=== PATIENT | male | born 1975 | race Caucasian/White ===

== ENCOUNTER 2016-11-16 20:25 | Inpatient (IN) | payer OTHER ==
[~2016-11-16] VITALS: Ht 182.9 cm; Wt 59.5 kg
--- NOTE | 2016-11-16 22:35 | DIAGNOSTIC IMAGING REPORT ---
PROCEDURE: XR TIBIA AND FIBULA - LEFT INDICATION: CELLULITIS TECHNIQUE: AP and lateral views. COMPARISON: None. FINDINGS: Osseous structures are normal. IMPRESSION: 1. Normal left tibia and fibula.
--- NOTE | 2016-11-16 22:37 | DIAGNOSTIC IMAGING REPORT ---
PROCEDURE: XR CHEST 1 VIEW INDICATION: They are. Overdose. TECHNIQUE: Portable AP view (2145 hours). COMPARISON: Compared to chest x-ray on 05/17/2015. FINDINGS: Lungs are clear. Heart and mediastinum are normal. Thorax is normal. IMPRESSION: 1. Negative chest.
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
--- NOTE | 2016-11-16 23:16 | ED ORDER SUMMARY ---
..... Patient: JUAN MCRAE OrderSheet [facility] VisitID: [id number] [place] [address] 41y, M Registration Date/Time: 11/16/2016 ORDER SHEET Weight: 68 kg (stated) Allergies: Sulfa Antibiotics GENERAL ORDERS: Blood Culture (No) (N/A) Urgent (21:37 11/16/2016 Marine SAXENA) (Ack 21:43 LTapper) (22:18 AMcQuoid ER Tech1) Chest 1V Urgent (21:38 11/16/2016 Marine SAXENA) (Ack 21:43 LTapper) (21:59 MCampbell) Sushi Chef (Continuous) (:38 11/16/2016 Marine SAXENA) (21:47 Sapphire R.N.) Cardiac Panel Stat (:11/16/2016 Marine SAXENA) (Ack 21:43 LTapper) (21:47 Paigeelli R.N.) Urine Drug Screen Urgent (21:38 11/16/2016 Marine SAXENA) (Ack 21:43 LTapper) (Cancelled: Patient Off Unit, patient unable to provide sample 5:19 HSoule) UA-Culture if indicated Urgent (21:38 11/16/2016 Marine SAXENA) (Ack 21:43 LTapper) (Cancelled: Patient Off Unit, patient unable to provide sample 5:20 HSoule) Acetaminophen Level Urgent (21:38 11/16/2016 Marine SAXENA) (Ack 21:43 LTapper) (21:48 omanelli R.N.) Salicylate Level Urgent (21:38 11/16/2016 Marine SAXENA) (Ack 21:43 LTapper) (21:48 Sapphire R.N.) TSH Urgent (21:11/16/2016 Marine SAXENA) (Ack 21:43 LTapper) (21:48 Paigeelli R.N.) Ethyl Alcohol Urgent (21:11/16/2016 Marine SAXENA) (Ack 21:43 LTapper) (21:48 Paigeelli R.N.) Pulse oximeter (21:38 11/16/2016 Marine SAXENA) (21:47 JRomanelli R.N.) EKG - ER Stat (21:38 11/16/2016 Marine SAXENA) (Ack 21:43 LTapper) (22:18 AMcQuoid ER Tech1) CO2 Monitoring (21:39 11/16/2016 Marine SAXENA) (23:11 HSoule) - (Neuro checks q 30 minutes.) (21:39 11/16/2016 Marine SAXENA) (0:43 HSoule) Tibia/Fibula Left Urgent (21:40 11/16/2016 Marine SAXENA) (Ack 21:43 LTapper) (21:59 MCampbell) MEDICATION ORDERS: IV FLUIDS: IV NS : initial bolus none -, then 250 mL/hr for 4h (NOW); Routine (21:38 11/16/2016 Marine SAXENA) (22:01 JRomanelli R.N.) Vancomycin IV 25 mg/kg (NOW) (21:40 11/16/2016 Marine SAXENA) (Ack 23:11 HSoule) (23:21 JRomanelli R.N.) IV#2 NS : initial bolus none -, then 250 mL/hr (NOW) (23:55 11/16/2016 JRomanelli R.N. verbal order read back to Marine SAXENA) (23:57 JRomanelli R.N.) ORDER SHEET NOTES: [Electronically signed by Florencia Briones (05:20 11/17/2016)] [Electronically signed by Florencia Briones (05:21 11/17/2016)] [Electronically signed by Clive Head MD (08:07 11/17/2016)] [Electronically locked/signed by Florencia Briones (05:20 11/17/2016)]
--- NOTE | 2016-11-16 23:16 | ED ORDER SUMMARY ---
..... Patient: JUAN MCRAE OrderSheet [facility] VisitID: [id number] [address] [place] [address] 41y, M Registration Date/Time: 11/16/2016 ORDER SHEET Weight: 68 kg (stated) Allergies: Sulfa Antibiotics GENERAL ORDERS: Blood Culture (No) (N/A) Urgent (21:37 11/16/2016 Marine SAXENA) (Ack 21:43 LTapper) (22:18 AMcQuoid ER Tech1) Chest 1V Urgent (21:38 11/16/2016 Marine SAXENA) (Ack 21:43 LTapper) (21:59 MCampbell) Stained Glass Window Designer (Continuous) (:38 11/16/2016 Marine SAXENA) (21:47 Sapphire R.N.) Cardiac Panel Stat (:11/16/2016 Marine SAXENA) (Ack 21:43 LTapper) (21:47 Paigeelli R.N.) Urine Drug Screen Urgent (21:38 11/16/2016 Marine SAXENA) (Ack 21:43 LTapper) (Cancelled: Patient Off Unit, patient unable to provide sample 5:19 HSoule) UA-Culture if indicated Urgent (21:38 11/16/2016 Marine SAXENA) (Ack 21:43 LTapper) (Cancelled: Patient Off Unit, patient unable to provide sample 5:20 HSoule) Acetaminophen Level Urgent (21:38 11/16/2016 Marine SAXENA) (Ack 21:43 LTapper) (21:48 omanelli R.N.) Salicylate Level Urgent (21:38 11/16/2016 Marine SAXENA) (Ack 21:43 LTapper) (21:48 Sapphire R.N.) TSH Urgent (21:11/16/2016 Marine SAXENA) (Ack 21:43 LTapper) (21:48 Paigeelli R.N.) Ethyl Alcohol Urgent (21:11/16/2016 Marine SAXENA) (Ack 21:43 LTapper) (21:48 Paigeelli R.N.) Pulse oximeter (21:38 11/16/2016 Marine SAXENA) (21:47 JRomanelli R.N.) EKG - ER Stat (21:38 11/16/2016 Marine SAXENA) (Ack 21:43 LTapper) (22:18 AMcQuoid ER Tech1) CO2 Monitoring (21:39 11/16/2016 Marine SAXENA) (23:11 HSoule) - (Neuro checks q 30 minutes.) (21:39 11/16/2016 Marine SAXENA) (0:43 HSoule) Tibia/Fibula Left Urgent (21:40 11/16/2016 Marine SAXENA) (Ack 21:43 LTapper) (21:59 MCampbell) MEDICATION ORDERS: IV FLUIDS: IV NS : initial bolus none -, then 250 mL/hr for 4h (NOW); Routine (21:38 11/16/2016 Marine SAXENA) (22:01 JRomanelli R.N.) Vancomycin IV 25 mg/kg (NOW) (21:40 11/16/2016 Marine SAXENA) (Ack 23:11 HSoule) (23:21 JRomanelli R.N.) IV#2 NS : initial bolus none -, then 250 mL/hr (NOW) (23:55 11/16/2016 JRomanelli R.N. verbal order read back to Marine SAXENA) (23:57 JRomanelli R.N.) ORDER SHEET NOTES: [Electronically signed by Florencia Briones (05:20 11/17/2016)] [Electronically signed by Florencia Briones (05:21 11/17/2016)] [Electronically signed by Clive Head MD (08:07 11/17/2016)] [Electronically locked/signed by Florencia Briones (05:20 11/17/2016)]
--- NOTE | 2016-11-17 00:25 | Progress Note ---
Subjective General 41 y.o male admitted for fevers, OD from heroin, cough, and r/o SBE. Patient sedated in ER from prior OD. Will watch labs, blood cultures, and treat with vanco.
--- NOTE | 2016-11-17 01:06 | HISTORY AND PHYSICAL ---
ADMITTED: 11/16/2016 CHIEF COMPLAINT: 1. Overdose, heroin use and fever HISTORY OF PRESENT ILLNESS: The patient is a 41-year-old male who presented to the emergency department today by ambulance crew and after having been found down. He was given some doses of Narcan in the field. He was brought to the emergency department where he continued to have issues of sedation. In the workup in the emergency department, he was found to have a fever with his history of heroin use and fever of unknown origin. A decision was made for admission at that time and we will admit him for fever in a heroin user and rule out heart valve infection. MEDICAL/SURGICAL HISTORY: Past medical history: The patient states he has generally been healthy. MEDICATIONS: 1. He denies. ALLERGIES: 1. HE SAYS HE HAS ALLERGIES TO SULFA, WHICH HAS CAUSED HIS EYE TO SWELL IN THE PAST. SOCIAL HISTORY: He is a known drug user. Heavy smoker, about a pack per day. He does both heroin and marijuana, uncertain of alcohol, but not an issue on today's use. FAMILY HISTORY: It is unable to obtain due to the fact that patient is very sleepy and minimally cooperative with his history. CODE STATUS: PRESUMED FULL. He is sleepy. He seems to nod when I asked him about code status. He would be unable to say if he is anything but FULL CODE. REVIEW OF SYSTEMS: He has also been noted to have history of MRSA infection in the past, as well as some abscesses. PHYSICAL EXAMINATION: GENERAL: He is a sleepy male who is responsive, wakes up some. Pulls his nasal cannula up onto the front of his nose and then answers a few questions before falling back to sleep again. VITAL SIGNS: His blood pressure is 108/71, heart rate of 109, respirations 16, temperature 102.3 and saturating 95% room air. HEENT: Extraocular movements intact. Pupils equal, round, reactive to light. Oropharynx is with poor dentition and broken teeth, as well as moist mucous membranes. NECK: Supple without lymphadenopathy. LUNGS: With coarse breath sounds bilaterally. He does state he has been coughing for the last week or 2. HEART: Regular rate and rhythm. No murmur. ABDOMEN: Soft, it is nontender, nondistended. EXTREMITIES: There is a fairly large ulceration on his left calf that is around 3 cm x 2 cm with a little bit of erythema. No other active sores seen on initial evaluation, other than superficial sores. NEUROLOGIC: He is sleepy male, who seems to be oriented to self and location while here, though hard to get him to track well. LAB/IMAGING: Laboratories: CBC: White count of 14.1, hematocrit of 33.4, platelets of 316, 000. Comprehensive metabolic panel: Glucose 95, BUN of 11, creatinine 0.9, sodium 135 , potassium 3.7, chloride 99, carbon dioxide 28, magnesium 1.8, calcium 7.3, total protein 7.5. Albumin 2.4, bili 0.2, alk phos 58, AST of 70, ALT of 83. CPK 137, troponin I less than 0.05. Acetaminophen less than 2. Alcohol less than 3. TSH of 1.263. Salsalate less than 2.8. EKG is within normal limits. Left tibia, fibula is normal. Chest x-ray is negative. IMPRESSION: 1. This is a 41-year-old male with heroin use and addiction, who presented to the emergency department after overdosing. He has a history of cough for about a week with possible source of fever of 102 that had in emergency room. Also an abscess on his thigh, as well as rule out any bacterial endocarditis. He has got blood cultures x3 drawn in the emergency department. His white count is elevated and no other known source of fever. Currently does not have a murmur heard on evaluation. PLAN: To admit him. We will hold on treatment of his heroin other than monitoring EKG and oxygen saturation at this point and when he wakes up and is alert and clear, may consider a low-dose of methadone for withdrawal symptoms. Anticipate that the patient will be watched for 48 hours on blood cultures, if negative, may consider discharge at that time. In the meantime, we will treat with vancomycin. He is ALLERGIC TO SULFA and so further treatment of possible methicillin-resistant Staphylococcus aureus will have to be considered at a later date as indicated.
[2016-11-17 01:37] VITALS: BP 102/65
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
[2016-11-17 06:29] VITALS: BP 104/67
--- NOTE | 2016-11-17 08:07 | ED MAR SUMMARY ---
..... Medication Administration Record [facility] [address] [place] [address] Patient: JUAN MCRAE Visit ID: [id number] 41y, M Weight: 68.0 kg Height/Length: 72 in BMI: 20.3 ALLERGIES: Sulfa Antibiotics Start 21:56 11/16/2016 Bill Crowder R.N., Stop 23:51 11/16/2016 Bill Crowder R.N. Medication Administered: IV NS (SALINE), Dose: IV Fluids over 4 hour(s), Rate: 250 mL/hr, Dispensed: 1000 mL bag, Site: #1 right foot. Medication Ordered: IV NS : initial bolus none -, then 250 mL/hr for 4h (NOW); Routine. Start 23:11 11/16/2016 Bill Crowder R.N., Stop 00:50 11/17/2016 Florencia Briones, Medication Administered: VANCOMYCIN [IVPB], Dose: 1 gm IVPB over 60 minute(s), Rate: 200 mL/hr, Dispensed: 200 mL bag, Site: #1 right foot. Medication Ordered: Vancomycin IV 25 mg/kg (NOW). Start 23:52 11/16/2016 Bill Crowder RPatel, Continued Upon Disposition 00:51 11/17/2016 Florencia Briones, Medication Administered: IV#2 NS (SALINE), Dose: IV Fluids over 4 hour(s), Rate: 250 mL/hr, Dispensed: 1000 mL bag, Site: #1 right foot. Medication Ordered: IV#2 NS : initial bolus none -, then 250 mL/hr (NOW).
--- NOTE | 2016-11-17 08:07 | ED DISCHARGE INSTRUCTIONS ---
Patient: JUAN MCRAE General Instructions [facility] VisitID: [id number] [address] [place] [address] 41y, M Registration Date/Time: 11/16/2016 Accidental multi-drug overdose with methamphetamine and heroin. Fever with concern for SBE IVDA heroin and meth. ADDITIONAL INFORMATION Accidental Ingestion:Non-Toxic [Adult] You have been evaluated and treated for taking too much of a medicine or swallowing a chemical product. There is no sign of toxic effect at this time. It is very unlikely that any new symptoms will appear. As a safeguard, you must be alert for symptoms during the next 24 hours (see below). The exact symptom will depend on what was swallowed. Home Care: If LIQUID CHARCOAL was given to neutralize what was swallowed, it will cause a black color to the stools for 1-2 days. Usually, a laxative (sorbitol) is given with charcoal to speed the removal of any toxins from the intestinal tract. This may cause diarrhea for up to 24 hours. If no laxative was given with charcoal, you may get constipated. If this occurs, you may take an pyks-ujn-hibnksh laxative such as Dulcolax pills or suppository. Prevention: Keep medicines, pesticides, and other household chemicals in their original containers. Clearly marta all harmful products if a different bottle is used. Follow Up with your doctor if all symptoms do not resolve within 24 hours or if constipation is not relieved by one or two doses of laxatives. Get Prompt Medical Attention if any of the following occur: Excess drowsiness or inability to be awakened Rapid heart beat, shakiness or seizure Fast breathing (over 25 breaths/minute) or slow breathing (less than 8 breaths/minute) Feeling shortness of breath Fever of 100.4F (38C) or higher, or as directed by your healthcare provider Vomiting or diarrhea for more than 24 hours Blood in stools or vomit (black or red color) Chest or abdominal pain Dizziness, weakness or fainting You have been given the following additional information: Overdose, Accidental (Adult) (Electronically signed by Marta Head MD 11/17/2016 8:07)
--- NOTE | 2016-11-17 08:07 | ED MAR SUMMARY ---
..... Medication Administration Record [facility] [address] [place] [address] Patient: JUAN MCRAE Visit ID: [id number] 41y, M Weight: 68.0 kg Height/Length: 72 in BMI: 20.3 ALLERGIES: Sulfa Antibiotics Start 21:56 11/16/2016 Bill Crowder R.N., Stop 23:51 11/16/2016 Bill Crowder R.N. Medication Administered: IV NS (SALINE), Dose: IV Fluids over 4 hour(s), Rate: 250 mL/hr, Dispensed: 1000 mL bag, Site: #1 right foot. Medication Ordered: IV NS : initial bolus none -, then 250 mL/hr for 4h (NOW); Routine. Start 23:11 11/16/2016 Bill Crowder R.N., Stop 00:50 11/17/2016 Florencia Briones, Medication Administered: VANCOMYCIN [IVPB], Dose: 1 gm IVPB over 60 minute(s), Rate: 200 mL/hr, Dispensed: 200 mL bag, Site: #1 right foot. Medication Ordered: Vancomycin IV 25 mg/kg (NOW). Start 23:52 11/16/2016 Bill Crowder RPatel, Continued Upon Disposition 00:51 11/17/2016 Florencia Briones, Medication Administered: IV#2 NS (SALINE), Dose: IV Fluids over 4 hour(s), Rate: 250 mL/hr, Dispensed: 1000 mL bag, Site: #1 right foot. Medication Ordered: IV#2 NS : initial bolus none -, then 250 mL/hr (NOW).
--- NOTE | 2016-11-17 08:07 | ED DISCHARGE INSTRUCTIONS ---
Patient: JUAN MCRAE General Instructions [facility] VisitID: [id number] [address] [place] [address] 41y, M Registration Date/Time: 11/16/2016 Accidental multi-drug overdose with methamphetamine and heroin. Fever with concern for SBE IVDA heroin and meth. ADDITIONAL INFORMATION Accidental Ingestion:Non-Toxic [Adult] You have been evaluated and treated for taking too much of a medicine or swallowing a chemical product. There is no sign of toxic effect at this time. It is very unlikely that any new symptoms will appear. As a safeguard, you must be alert for symptoms during the next 24 hours (see below). The exact symptom will depend on what was swallowed. Home Care: If LIQUID CHARCOAL was given to neutralize what was swallowed, it will cause a black color to the stools for 1-2 days. Usually, a laxative (sorbitol) is given with charcoal to speed the removal of any toxins from the intestinal tract. This may cause diarrhea for up to 24 hours. If no laxative was given with charcoal, you may get constipated. If this occurs, you may take an uvxy-lth-plvuruo laxative such as Dulcolax pills or suppository. Prevention: Keep medicines, pesticides, and other household chemicals in their original containers. Clearly marta all harmful products if a different bottle is used. Follow Up with your doctor if all symptoms do not resolve within 24 hours or if constipation is not relieved by one or two doses of laxatives. Get Prompt Medical Attention if any of the following occur: Excess drowsiness or inability to be awakened Rapid heart beat, shakiness or seizure Fast breathing (over 25 breaths/minute) or slow breathing (less than 8 breaths/minute) Feeling shortness of breath Fever of 100.4F (38C) or higher, or as directed by your healthcare provider Vomiting or diarrhea for more than 24 hours Blood in stools or vomit (black or red color) Chest or abdominal pain Dizziness, weakness or fainting You have been given the following additional information: Overdose, Accidental (Adult) (Electronically signed by Marta Head MD 11/17/2016 8:07)
--- NOTE | 2016-11-17 08:07 | ED MED RECONCILIATION SUMMARY ---
Patient: NATACHA MCRAEOPHER Bernie Medication Reconciliation Report [facility] VisitID: [id number] [address] [place] [address] 41y, M Registration Date/Time: 11/16/2016 Weight: 68 kg Height/Length: 72 in. BMI: 20.3 ALLERGIES: Sulfa Antibiotics The patient's Home Medications are listed below: NONE. The source(s) of the original Home Medication information: patient The following Medications were given to the patient in the Emergency Department: IV NS IV Fluids bolus 0, then 250 mL/hr, administered: 11/16/2016 9:56:00 PM Vancomycin [IVPB] IVPB bolus 0, then 1 gm 200 mL/hr, administered: 11/16/2016 11:11:00 PM IV#2 NS IV Fluids bolus 0, then 250 mL/hr, administered: 11/16/2016 11:52:00 PM The following Medications were prescribed to the patient: None.
--- NOTE | 2016-11-17 08:07 | ED MED RECONCILIATION SUMMARY ---
Patient: NATACHA MCRAEOPHER Bernie Medication Reconciliation Report [facility] VisitID: [id number] [address] [place] [address] 41y, M Registration Date/Time: 11/16/2016 Weight: 68 kg Height/Length: 72 in. BMI: 20.3 ALLERGIES: Sulfa Antibiotics The patient's Home Medications are listed below: NONE. The source(s) of the original Home Medication information: patient The following Medications were given to the patient in the Emergency Department: IV NS IV Fluids bolus 0, then 250 mL/hr, administered: 11/16/2016 9:56:00 PM Vancomycin [IVPB] IVPB bolus 0, then 1 gm 200 mL/hr, administered: 11/16/2016 11:11:00 PM IV#2 NS IV Fluids bolus 0, then 250 mL/hr, administered: 11/16/2016 11:52:00 PM The following Medications were prescribed to the patient: None.
--- NOTE | 2016-11-17 08:49 | NUR ---
Vancomycin dosing per pharmacy Treating to r/o bacterial endocarditis fever in heroin addict; pt found down in field; wbc 12.1, neutorphils 85.9%, temp on admit in ED 101 Hx MRSA infections and has abscess on thigh, also smoker. target trough 15-20 mcg/ml Initial dose Vancomycin total given 1500 mg (500 mg ~ 0300) to be followed with 1000 mg IV q8h. Measuring trough level 11/18 0930 - prior to 1000 dose (5th dose). Pharmacist will follow
[2016-11-17 10:58] VITALS: BP 95/44
--- NOTE | 2016-11-17 13:09 | NUR ---
UP TO SHOWER. TOLERATED WELL. UP IN CHAIR FOR LUNCH. SLEEPING WHEN IN BED. AWAKENS EASILY.
--- NOTE | 2016-11-17 13:39 | Progress Note ---
Subjective General Patient more awake now. Feeling well. Pain controlled. No nausea, vomitting, diarrhea, constipation. Shower this am and now wound is draining. Physical Exam Vital Signs / I&Os Vital Signs Date Time Temp Pulse Resp B/P Pulse O2 O2 Flow FiO2 Ox Delivery Rate 11/17 1058 36.9 75 18 95/44 96 Room Air 0.0 11/17 0800 Nasal 2.0 Cannula 11/17 0629 36.8 80 18 104/67 99 Nasal 2.0 Cannula 11/17 0259 76 12 97 2.0 11/17 0137 37.2 66 13 102/65 99 Nasal 2.0 Cannula 11/17 0130 Nasal 2.0 Cannula General Appearance Alert, Oriented X3, No acute distress Lungs Clear to auscultation, Normal air movement Cardiovascular Regular rate and rhythm, Normal S1 and S2, No murmurs, gallops, rubs Abdomen Normal bowel sounds, Soft, No tenderness Extremities No edema, 2 cm x 1 cm and 1 cm x 1 cm lesions on L cueva with erythema and pus discharge Assessment and Plan Problem List 1. Abscess Plan Culture sent. On vanco. 2. HEROIN OD Plan Resolved. 3. Heroin abuse Plan will start methadone
[2016-11-17 14:27] VITALS: BP 104/54
--- NOTE | 2016-11-17 18:44 | NUR ---
UP IN CHAIR FOR DINNER. NOW IN BED WITH JIA RUNNING, WATCHING TV.
[2016-11-17 18:47] VITALS: BP 113/57
[2016-11-17 22:24] VITALS: BP 108/65
[2016-11-18 01:55] VITALS: BP 110/69
--- NOTE | 2016-11-18 06:12 | NUR ---
vss. Calm and cooperative with care this shift. Pt belongings under nurses station due to closet door in room not having a lock. Pt sleeping between care. IV vanco. C/O withdrawl symptoms. Dr. Angel notified and methadone dose increased. WCTM.
[2016-11-18 06:40] VITALS: BP 110/74
--- NOTE | 2016-11-18 10:04 | NUR ---
Vancomycin dosing per pharmacy trough 16.1 in therapeutic range Continue with current dosing - 1 gm IV q8h Will recheck trough on 11/19 to confirm steady state Pharmacist will follow
[2016-11-18 10:38] VITALS: BP 108/61
--- NOTE | 2016-11-18 10:43 | Progress Note ---
Subjective General Feeling improved today. No nausea, vomitting, diarrhea, or constipation, but hasn't had a BM since admit. Eating well. NO cough or SOB. No chest pain. Physical Exam Vital Signs / I&Os Vital Signs Date Time Temp Pulse Resp B/P Pulse O2 O2 Flow FiO2 Ox Delivery Rate 11/18 1038 36.7 71 20 108/61 98 Room Air 11/18 0640 36.7 71 20 110/74 96 Room Air 0.0 11/18 0155 37.0 80 24 110/69 96 Room Air 11/17 2224 36.8 70 24 108/65 98 Room Air 11/17 1847 37.1 82 24 113/57 96 Room Air 11/17 1427 36.2 79 18 104/54 98 Room Air 11/17 1058 36.9 75 18 95/44 96 Room Air 0.0 I&O 11/18 0000 11/17 1600 11/17 0800 Intake Total 740 1380 936 Output Total 1575 1600 600 Balance -835 -220 336 General Appearance Alert, Cooperative, No acute distress Lungs End-expiratory wheezing. Cardiovascular Regular rate and rhythm, Normal S1 and S2, No murmurs, gallops, rubs Abdomen Normal bowel sounds, Soft, No tenderness Extremities No edema, 2cm x 1 cm lesion on L cueva with pus discharge that is decreasing. Erythema has improved. Assessment and Plan Problem List 1. Abscess Plan Improving on abx. Likely discharge tomorrow. 2. Heroin abuse Plan Started on methadone. 3. HEROIN OD Plan Resolved.
[2016-11-18 14:20] VITALS: BP 111/66
--- NOTE | 2016-11-18 15:07 | NUR ---
PT AWAKE, COOPERATIVE. DENIED ANY PAIN. APPETITE GOOD AND EATING SNACKS. WOUND ON LLE, SMALL AMOUNT OF OLD DRAINAGE ON DRESSING, LESS RED, CALF AREA VERY FIRM POSTERIOR TO WOUND. REDRESSED WOUND WITH 4X4'S AND GAUZE WRAP.
--- NOTE | 2016-11-18 17:41 | NUR ---
STARTED ON IS. ABLE TO GET TO 4000 WITH GOOD TECHNIQUE. PRODUCED COUGHING.
[2016-11-18 19:00] VITALS: BP 109/64
[2016-11-18 22:13] VITALS: BP 111/69
[2016-11-19 01:46] VITALS: BP 108/67
[2016-11-19 06:17] VITALS: BP 108/65
--- NOTE | 2016-11-19 07:49 | Progress Note ---
Subjective General Note Date: November 19, 2016 Admission Date: November 16, 2016 Hospital Day: 4 PCP: None Status: Inpatient Advanced Directive: FULL CODE Room: 301 Brief History: The patient is a 41-year-old white male with a significant past medical history of illicit drug use-heroin/methamphetamine. He presented with findings of opiate overdose. Secondary to the above the patient was admitted by Yaron Fournier M.D., for further evaluation and treatment. For other history of present illness, past medical history, family history, social history, review systems, and admission physical examination please see the admission history and physical exam and ER visit note in the patient's medical record. Subjective: The patient states he is doing well. Ready for discharge Patient requests: None Medications and Allergies Medications Current Medications Sig/Darling Start time Last Medication Dose Route Stop Time Status Admin Clarify Med Order See Dose 0930 11/19 0930 AC Insts (1) IV 11/19 1030 Albuterol Sulfate 2.5 MG RTQ4H PRN 11/18 1200 AC 11/18 IN 1423 Methadone HCl 10 MG BID 11/18 0900 AC 11/18 PO 2224 Clotrimazole See Dose BID 11/17 1200 AC 11/18 Insts (2) TOP 2200 Vancomycin HCl/ 200 ML 1000,1800,0200 11/17 1000 AC 11/19 Dextrose IV 0150 Acetaminophen 650 MG Q6H PRN 11/17 0015 AC PO Al Hydrox/Mg Hydrox/ 15 ML Q1H PRN 11/17 0015 AC Simethicone PO Atropine Sulfate 0.5 MG Q3MIN PRN 11/17 0015 AC IV Lidocaine HCl See Dose ONCE PRN 11/17 0015 AC Insts (3) IV Magnesium Hydroxide 10 ML DAILY PRN 11/17 0015 AC PO Morphine Sulfate 2 MG Q3M PRN 11/17 0015 AC IV Naloxone HCl 0.4 MG ASDIRECTED PRN 11/17 0015 AC IV Nitroglycerin 0.4 MG Q5M PRN 11/17 0015 AC SL Dose Instructions: (1)Clarify Med Order: VANCOMYCIN TROUGH (2)Clotrimazole: APPLY TO AFFECTED AREA (3)Lidocaine HCl: 1.5 MG/KG Allergies Coded Allergies: Sulfa Antibiotics (Severe, 11/17/16) Physical Exam Vital Signs / I&Os Vital Signs Date Time Temp Pulse Resp B/P Pulse O2 O2 Flow FiO2 Ox Delivery Rate 11/19 0617 98.1 75 16 108/65 100 Room Air 0.0 11/19 0146 98.1 62 16 108/67 97 Room Air 0.0 11/18 2213 98.2 67 16 111/69 96 Room Air 0.0 11/18 1900 98.4 66 16 109/64 97 Room Air 11/18 1458 Room Air 11/18 1420 97.7 78 20 111/66 98 Room Air 11/18 1038 98.1 71 20 108/61 98 Room Air I&O 11/19 0000 11/18 1600 11/18 0800 Intake Total 820 120 620 Output Total 375 375 450 Balance 445 -255 170 General Appearance Alert, Oriented X3, Cooperative, No acute distress Lungs Clear to auscultation Cardiovascular Regular rate and rhythm, Normal S1 and S2 Abdomen Normal bowel sounds, Soft Skin Abscess site left leg without significant surrounding erythema or discharge Neurological Grossly normal. Psych/Mental Status Mental status normal LAB Results Laboratory Tests 11/18 0930 Toxicology Vancomycin Trough (10.0 - 20.0 ug/mL) 16.1 Assessment and Plan Problem List 1. Illicit drug use Status Chronic Onset Date Unknown Plan -discharge today -Outpatient follow-up [facility] methadone program 2. Opiate dependence Status Chronic Onset Date Unknown Plan -see above -Discharged today Current Status: Fair, improved Anticipated Discharge: Today E&M Codes Discharge: Inpt >30 min spent/[id number]
[2016-11-19] MEDS ORDERED: KEFLEX500 M1 PO (10:42)
[2016-11-19] MEDS ORDERED: METHADONE HCL10 MG PO (10:42)
--- NOTE | 2016-11-19 10:47 | Provider's Discharge Care Plan ---
Problem, Goal, Plan Problem List 1. Opiate dependence Goals: Improve disease control, Improve function, Improved health/wellness, Increase independence, Prevent disease progress Instructions: Follow up as directed, Take meds as directed, Enroll in [facility] methadone treatment program. 2. Abscess Goals: Improve disease control, Prevent disease progress Instructions: Follow up as directed, Take meds as directed 3. Nicotine dependence Goals: Improve disease control, Prevent disease progress Instructions: Follow up as directed, Take meds as directed, Stop smoking 4. Elevated LFTs Goals: Improve disease control, Prevent disease progress Instructions: Follow up as directed, follow-up for results of liver function testing performed in the hospital with your PCP this week
--- NOTE | 2016-11-19 10:50 | Discharge Summary ---
Discharge Summary Report Admit Date 11/17/16 Discharge Date 11/19/16 Admission Diagnosis 1. Opiate overdose 2. Illicit drug use-heroin, methamphetamine 3. Abscess left lower leg 4. Nicotine dependence-smoking Discharge Diagnosis 1. Opiate overdose 2. Illicit drug use-heroin, methamphetamine 3. Abscess left lower leg 4. Nicotine dependence-smoking Hospital Course The following problems and their management were noted during the patient's hospitalization: 1. Opiate overdose The patient presented with findings of opiate overdose. This resolved with conservative care. The patient had no findings of opiate toxicity on discharge. He was discharged to follow-up in methadone treatment program. 2. Illicit drug use-heroin, methamphetamine The patient has a history of illicit drug use-heroin/methamphetamine. He underwent treatment with opiate replacement therapy during his hospitalization. No signs of opiate withdrawal on discharge. He was referred to [facility] methadone treatment program on discharge. He was discharged on methadone 10 mg by mouth 4 times a day. 3. Abscess left lower leg The patient had findings of abscess present left lower leg. At the time of discharge there were no findings of surrounding cellulitis or discharge from abscess. He was discharged on Keflex 500 mg by mouth 4 times a day. Outpatient follow-up with his PCP. 4. Nicotine dependence-smoking The patient has a history of nicotine dependence-smoking. He underwent smoking cessation education. He wished to not use a NicoDerm patch on discharge. He was encouraged to follow a smoking abstinence program post discharge. He is aware of the health risks of ongoing use of cigarettes/tobacco. Lab/Imaging Laboratory Tests 11/19 0930 Toxicology Vancomycin Trough (10.0 - 20.0 ug/mL) 14.5 Discharge Instructions/Meds For other recommendations regarding discharge diet, activity, followup, and discharge medications please see the patient's discharge instructions. Discharge condition: Fair, improved Greater than 30 min. was spent in the patient's discharge preparation including discharge interview and physical examination, progress note, discharge instructions, and discharge summary The patient was interviewed and examined on the day of discharge. E&M Codes Discharge: Inpt >30 min spent/[id number]
[2016-11-19 11:19] VITALS: BP 98/57
--- NOTE | 2016-11-19 11:27 | NUR ---
PT HAS BEEN OOB TO CHAIR FOR BREAKFAST. HE APPEARS INDEPENDENT IN MOVING. DRESSING ON LLE WAS CHANGED AND DR ALMODOVAR OBSERVED SITE. IL IN R FOOT IS INTACT. WOUND CARE NURSE HERE.
--- NOTE | 2016-11-19 13:52 | NUR ---
In to see patient, being discharged, pt with wound to Left LE, pt not sure of etiology. Please see Photographic wound assessment sheet for wound characteristics and photo. Wound cleansed with NS, Mepliex AG applied to wound base, and secured with Kerlix. Pt understands instructions, and to change in 7 days, except if drainage is out to the borders, will change sooner. Pt given a Regular Mepilex for dressing change in 7 days. Pt has orders to follow up at [facility]. Pt expresses understanding and all questions answered, will continue to monitor.
--- NOTE | 2016-11-19 14:22 | NUR ---
R foot IL discontinued without difficultly and pressure dressing applied. L calf dressing is dry and intact. Pt oob and dressed self. Discharge instructions and 2 new Rx reviewed with pt and copy to chart. Follow up visit, and Methadone rehab clinic info also reviewed with pt. Pt escorted downstairs to obtain bus pass. All questions were answered.
== END 2016-11-19 14:30 | disposition home or self-care (01) | DRG 816 ==
LOC: ED SRH 20:25 → TRANS SRH 23:51 → CC SRH 11-17 00:30
PROVIDERS: ADMIT Family Medicine
DX: T40.1X1A Poisoning by heroin, accidental (unintentional), initial encounter (principal); L02.416 Cutaneous abscess of left lower limb; R50.81 Fever presenting with conditions classified elsewhere; F15.10 Other stimulant abuse, uncomplicated; F17.210 Nicotine dependence, cigarettes, uncomplicated; R40.2412 Glasgow coma scale score 13-15, at arrival to emergency department

== ENCOUNTER 2016-12-18 19:05 | Inpatient (IN) | payer OTHER ==
[~2016-12-18] VITALS: Ht 182.9 cm; Wt 65.0 kg
[~2016-12-18 19:05] MED LIST: KEFLEX500 M1 PO; METHADONE HCL10 MG PO
--- NOTE | 2016-12-18 22:35 | ED CLINICAL REPORT ---
Clinical Report - Physicians/Mid Levels [facility] [address] [place] [address] 12/18/2016 19:05 Patient: JUAN MCRAE Time Seen: 19:15; initial patient contact. Arrived- By ambulance. Historian- patient. History limited by vague historian and intoxication. Physical Exam limited by poor cooperation and intoxication. HISTORY OF PRESENT ILLNESS Chief Complaint: VOMITING. This started just prior to arrival and is still present. The patient has had nausea and vomiting. No diarrhea. The illness is described as moderate. Recent medical care: Not recently seen/assessed. REVIEW OF SYSTEMS The patient has had fever, chills, nausea, vomiting and skin lesion. He has experienced sweats. He has had a moderate cough productive of yellow, green sputum. All systems otherwise negative, except as recorded above. PAST HISTORY Substance Abuse. SURGERIES: Tonsillectomy. Problems: Substance Abuse. Additional Surgeries: Tonsillectomy. Medications: None. Allergies: Sulfa Antibiotics. SOCIAL HISTORY Current every day smoker. History of heavy IV drug use: heroin. He is homeless. FAMILY HISTORY Unable to obtain family medical history due to patient's unresponsiveness. ADDITIONAL NOTES The nursing notes have been reviewed with agreement regarding the chief complaint, PMH and patient medications and allergies. PHYSICAL EXAM Vital Signs: 12/18/2016 19:13 BP: 117/47. HR: 120. RR: 20. O2 saturation: 95%. Temp: 99.2 F. Pain level now: 10/10. Have been reviewed. Hypotensive. Tachycardic. Respiratory rate normal. Temperature normal. Oxygen saturation normal. Appearance: Anxious. Patient in mild distress. Eyes: Eyes normal inspection. ENT: Dry mucous membranes present. CVS: Tachycardia. 1/6 brief systolic murmur. Rhythm normal. Respiratory: No respiratory distress. Abdomen: Soft and nontender. Bowel sounds normal. No organomegaly. No mass. Skin: No rash. Extremities: No lower extremity edema. Neuro: Moderately altered mental status: labile. LABS, X-RAYS, AND EKG EKG: Rate: 117. Tachycardia. The study has been independently viewed by me. Chest X-ray: (IMPRESSION: 1. Findings suggest parenchymal changes at the lung bases. Consider underlying pneumonia (e.g., aspiration, bacterial). 2. Otherwise negative chest.). The X-rays were interpreted by the radiologist and contemporaneously by me. Abdominal Sonogram: Gallbladder wall thickening is present (hyperemic, 3.6 - 5.8 mm). Pericholecystic fluid is present. The common duct is dilated (1.8 mm). Mild fatty liver is present. No gallstones, common duct stones or dilated intrahepatic ducts. The study was independently viewed by me. Laboratory Tests: UA-Culture if indicated: (CHARLES: 12/18/2016 22:52) ( [facility]11[facility] Final results Test Result Flag Units (Reference) URINE COLOR YELLOW URINE APPEARANCE CLEAR URINE GLUCOSE NEGATIVE (NEGATIVE) URINE BILIRUBIN NEGATIVE (NEGATIVE) URINE KETONE NEGATIVE (NEGATIVE) URINE SPECIFIC GRAVITY <= 1.005 L (1.010-1.030) URINE PH 5.5 (5.0-8.0) URINE PROTEIN NEGATIVE (NEGATIVE) URINE UROBILINOGEN 0.2 EU/dL (0.2-1.0) URINE NITRITE NEGATIVE (NEGATIVE) URINE BLOOD 2+ (NEGATIVE) URINE LEUK ESTERASE NEGATIVE (NEGATIVE) URINE RBC 1-3 rbc/hpf (0-1) URINE WBC RARE wbc/hpf (0-1) URINE EPITHELIAL CELLS NONE SEEN EPI/hpf (0-5) URINE BACTERIA NONE SEEN (NONE SEEN) URINE COMMENT CULT NOT INDICATED URINE CULTURES ARE SET-UP BASED ON THE FOLLOWING CRITERIA:POSITIVE NITRITEPOSITIVE LEUKOCYTE ESTERASEGREATER THAN 10 WHITE BLOOD CELLSMODERATE (2+) OR GREATER BACTERIA CBC w Diff: (CHARLES: 12/18/2016 20:10) ( [facility] 12/18/2016 20:30) Final results Test Result Flag Units (Reference) WHITE BLOOD COUNT 8.4 K/uL (4.5-11.5) RED BLOOD COUNT 4.28 L M/uL (4.50-5.90) HEMOGLOBIN 12.5 L gm/dL (13.5-17.5) HEMATOCRIT 37.1 L % (41.0-53.0) MEAN CELL VOLUME 87 fL (80-100) MEAN CORPUSCULAR HGB 29 pg (26-34) MEAN CORPUSCULAR HGB CONC 34 g/dL (31-37) RED CELL DISTRIBUTION WIDTH 15.3 H % (11.6-14.8) PLATELET COUNT 258 K/uL (150-400) NEUTROPHIL % 92.2 H % (50-75) LYMPH % 7.1 L % (25-40) MONO % 0.5 L % (3-14) EOSINOPHIL % 0.2 % (0-4) BASOPHIL % 0 % (0-2) BNP: (CHARLES: 12/18/2016 20:10) ( [facility] 12/18/2016 23:06) Final results Test Result Flag Units (Reference) B-TYPE NATRIURETIC PEPTIDE 10.2 pg/ml (5-100) CPK: (CHARLES: 12/18/2016 20:10) ( [facility] 12/18/2016 22:59) Final results Test Result Flag Units (Reference) CPK 182 U/L (24-260) TROPONIN I <0.05 ng/mL (0.00-1.5) TROPONIN REFERENCE RANGE:<0.1 NEGATIVE0.1-1.5 INDETERMINANT>1.5 POSITIVE Lactate, Serum: (CHARLES: 12/18/2016 20:10) ( [facility] 12/18/2016 20:45) Final results Test Result Flag Units (Reference) LACTIC ACID 2.2 H mmol/L (0.4-2.0) Urine Drug Screen: (CHARLES: 12/18/2016 22:52) ( [facility] 12/18/2016 23:14) Final results Test Result Flag Units (Reference) AMPHETAMINE/METHAMPHETAMINE POSITIVE H (NEGATIVE) BARBITURATE NEGATIVE (NEGATIVE) BENZODIAZEPINE NEGATIVE (NEGATIVE) CANNABINOID NEGATIVE (NEGATIVE) COCAINE NEGATIVE (NEGATIVE) ECSTASY NEGATIVE (NEGATIVE) METHADONE NEGATIVE (NEGATIVE) OPIATE POSITIVE H (NEGATIVE) The urine drug screen is a qualitative screening test fordrug overdose and abuse. All screen results should beconsidered as presumptive.Drugs screened for are as follows:BenzodiazepinesCocaineAmphetamines/MetamphetaminesTHC (Tetrahydrocannabinol)OpiatesBarbituratesEcstasyMethadonePositive results are unconfirmed. For confirmation, notifythe lab for the specimen to be sent to the reference lab.All confirmations must be performed by a differentmethodology.The ingestion of natural herbal and plant productscontaining Ephedra/Ephedra metabolites can produce in urineone or more substances capable of cross reacting withamphetamine/methamphetamine immunoassays. These testsprovide a preliminary result only. A more specificalternative chemical method must be used to obtain aconfirmed analytical result. [id number]: (CHARLES: 12/18/2016 20:10) ( [facility] 12/18/2016 22:18) Final results Test Result Flag Units (Reference) PROCALCITONIN 79.7 H ng/mL (0-0.5) PCT Concentration: Interpretation : Risk/option for action PCT <=0.5 ng/mL : Systemic : Low risk forinfection(sepsis): progression to severeis not likely. : systemic infection.Local bacterial : CAUTION-PCT levelsinfection is : below 0.5 ng/mL do notpossible. : exclude an infection,because localizedinfections (withoutsystemic signs) may beassociated with suchlow levels. If PCT ismeasured very earlyafter a bacterialchallenge (usually <6hours), these valuesmay still be low. Inthis case PCT shouldbe re-assessed 6-24hours later. PCT >0.5 and : Systemic infection: Moderate risk for<= 2 ng/mL : (sepsis) is : progression to severepossible, but : systemic infection.other conditions : The patient should beare known to : closely monitoredelevate PCT. : both clinically andby re-assessing PCTwithin 6-24 hours. PCT > 2 ng/mL : Systemic infection: High risk for(sepsis) is likely: progression to severeunless other : systemic infection.causes are known. : PCT >= 10 ng/mL : Important systemic: High likelihood ofinflammatory : severe sepsis orresponse, almost : septic shock.exclusively due to:severe bacterial :sepsis or septic :shock. : CMP: (CHARLES: 12/18/2016 20:10) ( MsgRcvd 12/18/2016 20:51) Final results Test Result Flag Units (Reference) GLUCOSE 92 mg/dL (70-110) BUN 20 H mg/dL (7-18) CREATININE 1.0 mg/dL (0.6-1.3) Estimated GFR >60 mL/min Estimated GFR- >60 mL/min Note: Persistent reduction over 3 months in eGFR<60 mL/min/1.73 m2 defines CKD. Patients with eGFR values>=60 mL/min/1.73 m2 may also have CKD if evidence ofpersistent proteinuria. Additional information may be foundat www.[email or web address].org. SODIUM 133 L mmol/L (136-145) POTASSIUM 4.0 mmol/L (3.5-5.1) SLIGHT HEMOLYSIS CHLORIDE 98 mmol/L (98-107) CARBON DIOXIDE 26 mmol/L (21-32) CALCIUM 8.5 mg/dL (8.5-10.1) TOTAL PROTEIN 7.8 g/dL (6.4-8.2) ALBUMIN 2.7 L g/dL (3.3-5.0) BILIRUBIN, TOTAL 1.3 H mg/dL (0.0-1.0) ALKALINE PHOSPHATASE 286 H U/L (46-116) AST (SGOT) 287 H U/L (15-37) ALT (SGPT) 186 H U/L (12-78) . PROGRESS AND PROCEDURES Course of Care: 21:47 12/18/16. Awaiting the rest of lab results, EKG, and CXR. Case signed out to Dr. Macdonald. Considering endocarditis 21:48. I reviewed the patient's history and exam findings with Dr. Anderson. I then subsequently reviewed these with the patient and examined him and my findings were consistent with those noted by Dr. Anderson. I followed up on the results the patient's pending studies and arranged his disposition as noted - . Discussed case with hospitalist, (Susana). Reviewed test results and need for additional work-up. Agreed upon treatment plan, need for patient follow-up and decision to admit. Health care provider will see patient in hospital. Consult obtained. Aura - renuka suggests a HIDA scan in the AM. Case discussed. Phone consult only. Will see patient in the hospital. Patient/family counseled. Old medical records reviewed. Disposition: Admitted to the Critical Care Unit. CLINICAL IMPRESSION Sepsis. Cholecystitis. Pneumonia. Possible infective endocarditis with drug abuse. (Electronically signed by Truman Colin MD 12/19/2016 0:26)
--- NOTE | 2016-12-18 22:36 | ED ORDER SUMMARY ---
..... Patient: JUAN MCRAE OrderSheet [facility] VisitID: [id number] [address] [place] [address] 41y, M Registration Date/Time: 12/18/2016 ORDER SHEET Weight: 58.9 kg (estimated) Allergies: Sulfa Antibiotics GENERAL ORDERS: Blood Culture (No) (N/A) Urgent (19:30 12/18/2016 Marlin Vaughn) (Ack 19:39 AMcQuoid ER Tech1) (20:21 HOShaughnessy R.N.) CBC w Diff Urgent (19:30 12/18/2016 Marlin Vaughn) (Ack 19:39 AMcQuoid ER Tech1) (20:21 HOShaughnessy R.N.) CMP Urgent (:12/18/2016 Marlin Vaughn) (Ack 19:39 AMcQuoid ER Tech1) (20:21 HOShaughnessy R.N.) UA-Culture if indicated Urgent (19:30 12/18/2016 Marlin Vaughn) (Ack 19:39 AMcQuoid ER Tech1) (20:21 HOShaughnessy R.N.) Urine Drug Screen Urgent (19:30 12/18/2016 aMrlin Vaughn) (Ack 19:39 AMcQuoid ER Tech1) (20:21 HOShaughnessy R.N.) Lactic Acid for Sepsis Protocol Urgent (19:30 12/18/2016 Marlin Vaughn) (Ack 19:39 AMcQuoid ER Tech1) (20:21 HOShaughnessy R.N.) PCT (Procalcitonin) Urgent (19:30 12/18/2016 Marlin Vaughn) (Ack 19:39 AMcQuoid ER Tech1) (20:21 HOShaughnessy R.N.) Chest 1V Urgent (21:43 12/18/2016 Marlin Vaughn) (Ack 21:51 AMcQuoid ER Tech1) (22:00 MCampbell) EKG - ER Stat (21:43 12/18/2016 Marlin Vaughn) (Ack 21:51 AMcQuoid ER Tech1) (22:06 AMcQuoid ER Tech1) US Abdomen Limited (No) Urgent (21:58 12/18/2016 Karla SAXENA) (Ack 22:01 AMcQuoid ER Tech1) (23:09 EInderbitzen R.N.) Blood Culture (No) (N/A) (3 total) Urgent (22:39 12/18/2016 Karla SAXENA) (Ack 22:42 AMcQuoid ER Tech1) (23:10 HOShaughnessy R.N.) CPK Urgent (22:41 12/18/2016 Karla SAXENA) (Ack 22:42 AMcQuoid ER Tech1) (22:43 AMcQuoid ER Tech1) Troponin-I Urgent (22:41 12/18/2016 Karla SAXENA) (Ack 22:42 AMcQuoid ER Tech1) (22:43 AMcQuoid ER Tech1) BNP Urgent (22:41 12/18/2016 Karla SAXENA) (Ack 22:42 AMcQuoid ER Tech1) (22:43 AMcQuoid ER Tech1) MEDICATION ORDERS: Vistaril IM 50 mg (NOW, Do not administer intravenously) (19:46 12/18/2016 HOSyoelughviktoria R.N. verbal order read back to Marlin Vaughn) (19:46 HOShaughviktoria R.N.) Tylenol PO 1,000 mg (NOW) (21:55 12/18/2016 HOShaughviktoria R.N. verbal order read back to Marlin Vaughn) (21:55 HOShaughcristiany R.N.) IV FLUIDS: IV NS : initial bolus 1000 mL (1000 mL/hr), then 1000 mL/hr for X1 (NOW) (19:27 12/18/2016 Marlin Vaughn) (20:20 HOShaughnessy R.N.) IV NS : initial bolus 1000 mL (1000 mL/hr), then 1000 mL/hr for X2 (NOW); Urgent (22:00 12/18/2016 Karla SAXENA) (22:08 HOShaughviktoria R.N.) Ceftriaxone IV 2 gm/50mL (NOW) (22:35 12/18/2016 Karla SAXENA) (22:45 HOShaughnessy R.N.) Zithromax IV 500 mg/250 mL (NOW) (22:35 12/18/2016 Karla SAXENA) (23:24 Nika R.N.) Vancomycin IV 1.5 gm/500 mL (NOW) (22:41 12/18/2016 Karla SAXENA) (Ack 0:11 Nika R.N.) Flagyl IV 500 mg/100mL (NOW) (23:10 12/18/2016 Karla SAXENA) (Ack 0:11 Nika R.N.) ORDER SHEET NOTES: [Electronically signed by Angel Samaniego R.N. (00:13 12/19/2016)] [Electronically signed by Truman Colin MD (00:26 12/19/2016)] [Electronically locked/signed by Angel Samaniego R.N. (00:13 12/19/2016)]
--- NOTE | 2016-12-18 22:36 | ED NURSING NOTES ---
Clinical Report - Nurses [facility] [address] [place] [address] 12/18/2016 19:05 Patient: JUAN MCRAE TRIAGE Triage time 19:13. Acuity: LEVEL 3. Chief Complaint: (per EMS: pt was found down in the [facility] bathroom and vomiting.) and INTOXICATION. Alert. No acute distress. SEPSIS SCREEN: Sepsis Screen. Negative (no infection suspected/documented). WING COMA SCORE: Wing Coma Scale: 15- eyes open spontaneously (4); best verbal response- oriented x 4 (5); best motor response- obeys commands (6). --19:18 Vicenta Lao R.N. 19:13 12/18/16. BP: 117/47. HR: 120. RR: 20. O2 saturation: 95%. Temp: 99.2 F. Pain level now: 07/30. --19:18 Vicenta Lao R.N. Weight: 58.9 kg estimated. Height/Length: 72 inches Per Patient. BMI: 17.6. --19:14 Vicenta Lao R.N. Medications None. --19:16 Vicenta Lao R.N. Allergies Sulfa Antibiotics. --19:16 Vicenta Lao R.N. History Arrived by EMS. Historian: patient. Unaccompanied. Primary physician (none). This occurred today. Treatment TIMBER KILLER: None. PAST MEDICAL HX: Immunizations: status is unknown. SOCIAL HX: Heavy tobacco smoker (cigarette)- less than 1 pack per day. History of IV drug use: heroin, benzodiazepines. No alcohol use. No infectious disease exposure. ABUSE ASSESSMENT: No report of abuse. NUTRITIONAL RISK ASSESSMENT: The nutritional risk assessment revealed no deficiencies. FUNCTIONAL ASSESSMENT: Functional assessment: no impairments noted. LEARNING NEEDS ASSESSMENT: The learning needs assessment revealed no barriers. --19:18 Vicenta Lao R.N. PROBLEMS: Substance Abuse. --19:17 Vicenta Lao R.N. ADDITIONAL SURGERIES: Tonsillectomy. --19:17 Vicenta Lao R.N. Interventions ID band on patient. Transported via stretcher. --19:18 Vicenta Lao R.N. PHYSICAL ASSESSMENT To room via stretcher. GENERAL / NEURO / PSYCH: Alert. Oriented X 4. Appears anxious. Behavior appears abnormal: agitation with hyperactive body language and rocking and verbal threats- threats of harm. Patient's speech is slurred. RESPIRATORY: Respirations not labored. CVS: Capillary refill less than 2 seconds. SKIN: Skin is warm and dry. Numerous fresh and old scarring and apparent needle tracks present. --19:21 Vicenta Lao R.N. NURSING PROGRESS NOTES Patient gowned. Head of bed elevated. Two patient identifiers checked. Call light placed in reach. Side rails up x 2. Bed placed in lowest position. Brakes of bed on. Patient ready for evaluation- chart flagged. --19:21 Vicenta Lao R.N. 19:22 12/18/2016 Site #1 started via IV in the left antecubital space with an 18g angiocath; one attempt (attempt done by JANINE Ortiz. Pt. was agitated yelling "fuck that hurts" and pulled away.). --19:23 Vicenta Lao R.N. ( 19:21 attempt to get pt. into a gown. Pt is agitated yelling at staff. Pt. throws jacket at medical staff specialist: needles and drugs:bupivacaine vials fell on the floor. Pt. states he has needles in his pants and coat.). --19:31 Vicenta Lao R.N. ( Waiting on PD for arrival.). --19:32 Angel Samaniego R.N. 19:46 12/18/2016 Vistaril (HydrOXYzine HCl) IM 50 mg given. Given in the right deltoid. Allergies verified, confirmed 5 rights and sedative warning given to the patient. --19:46 Angel Samaniego R.N. ( PD arrived and assisted staff with calming patient down. Administered 50mg IM Vistaril. Will attempted IV again after vistaril takes effect.). --19:51 Angel Samaniego R.N. 20:17 12/18/2016 Site #2 started via IV in the right antecubital space with an 18g angiocath; three attempts. Blood drawn: rainbow set and cultures x1. Labeled in the presence of the patient and sent to the lab. Saline lock flushed with 10 mL saline. --20:17 Angel Samaniego R.N. 20:20 12/18/2016 Started IV Fluids IV NS (Saline); bolus of 1000 mL wide open via site #2. Allergies verified and confirmed 5 rights. IV patency established. IV site checked: no pain, redness, or swelling. IV flushed thoroughly pre- and post-medication administration. --20:20 Angel Samaniego R.N. 20:21 12/18/2016 IV Fluids IV NS Response: pain is improving. Symptoms have improved the patient feels better. --20:21 Angel Samaniego R.N. Patient ID band checked for patient name and birthdate: patient confirmed. Blood samples drawn from the right antecubital space peripheral IV site with syringe by nurse per protocol ; labeled in presence of the patient and sent to lab: rainbow set and liriano top; blood culture (1st set). Line flushed with 10 mL normal saline post blood draw. --21:53 Angel Samaniego R.N. 21:53 12/18/16. BP: 110/50. HR: 120. RR: 32. O2 saturation: 92% on room air. Temp: 105 F (rectal). --21:54 Angel Samaniego R.N. 22:08 12/18/2016 Started bag #1 1000 mL IV Fluids IV NS (Saline); bolus of 1000 mL wide open via site #2. Allergies verified and confirmed 5 rights. IV patency established. IV site checked: no pain, redness, or swelling. IV flushed thoroughly pre- and post-medication administration. --22:08 Angel Samaniego R.N. EKG time: (2206 PM). EKG was ordered, performed by a nurse and shown to the ED physician. --22:10 Angel Samaniego R.N. 22:10 12/18/16. BP: 107/55. HR: 115 (regular, tachycardic and strong). RR: 32. O2 saturation: 96% on room air. --22:11 Angel Samaniego R.N. Patient has duplicate medical record number. Chart will be merged per medical records with [id number]. --22:29 McQuoid, Janey, ER Tech1 19:10. ( Assisting DAVY Craig with getting patient out of clothing and getting vital signs; multiple needles and sharps in numerous jackets. [place] fire assisting in placing numerous clothing articles into bags that were piled on patient. Patient instructed to remove jeans and asked if he had sharps in his pockets. Pt stated he had sharps in his pockets and was then instructed by this RN to remove sharps from pockets and place in shaps container. Patient pulled handful of needles, bupivicaine vials, cards, and glue vials out of pockets and threw them at this RN. Security and [place] [employer] notified. Patient removed jeans only and became agitated with nursing staff wouldn't place clothing into belongings bags. Pt ripped off gown and naked in room, and becoming more agitated. Nursing staff exited room and MD and security at bedside.). --19:46 Myke Carrion R.N. 22:45 12/18/2016 Started 2 gm of Ceftriaxone IVPB; at 100 mL/hr over 30 minute(s) via site #2 via IV pump. Allergies verified and confirmed 5 rights. IV patency established. IV site checked: no pain, redness, or swelling. IV flushed thoroughly pre- and post-medication administration. --22:45 Angel Samaniego R.N. 23:23 12/18/2016 IV Fluids IV NS Discontinued: bag #2 infused. Total amount infused: 1000 mL. IV patency established. IV site checked: no pain, redness, or swelling. IV flushed thoroughly. --23:23 Angel Samaniego R.N. 23:24 12/18/2016 Started IV Fluids IV NS (Saline); bolus of 1000 mL wide open via site #2. Allergies verified and confirmed 5 rights. IV patency established. IV site checked: no pain, redness, or swelling. IV flushed thoroughly pre- and post-medication administration. --23:24 Angel Samaniego R.N. 23:24 12/18/2016 Started 500 mg of Zithromax (Azithromycin) IVPB; at 250 mL/hr over 1 hour(s) via site #2 via IV pump. Allergies verified and confirmed 5 rights. IV patency established. IV site checked: no pain, redness, or swelling. IV flushed thoroughly pre- and post-medication administration. --23:24 Angel Samaniego R.N. 23:24 12/18/2016 Ceftriaxone IVPB Discontinued: bag #1 infused. Total amount infused: 50 mL. IV patency established. IV site checked: no pain, redness, or swelling. IV flushed thoroughly. --23:24 Angel Samaniego R.N. 23:25 12/18/2016 IV Fluids IV NS Discontinued: bag #3 completed. Total amount infused: 1000 mL. IV patency established. IV site checked: no pain, redness, or swelling. IV flushed thoroughly. --23:25 Angel Samaniego R.N. 23:25 12/18/16. BP: 106/59. HR: 112. RR: 28. O2 saturation: 93% on room air. Temp: 38.6 C. Additional comments: temping sensing shah. --23:26 Angel Samaniego R.N. Blood samples drawn from the left antecubital space with 18g butterfly: blood culture. Call light placed in reach. Side rails up x 1. --23:26 Angel Samaniego R.N. 00:11 12/19/2016 Zithromax IVPB Continued: upon admission at the rate of 255 mg/hr. 100 mL remaining bag #1. IV patency established. IV site checked: no pain, redness, or swelling. IV flushed thoroughly. --00:11 Angel Samaniego R.N. DISPOSITION / DISCHARGE 21:55 12/18/2016 Tylenol (Acetaminophen) PO Tablets 1000 mg given. Allergies verified and confirmed 5 rights. --21:55 Angel Samaniego R.N. 21:55 12/18/2016 IV Fluids IV NS Discontinued: bag #1 infused. Total amount infused: 1000 mL. IV patency established. IV site checked: no pain, redness, or swelling. IV flushed thoroughly. --21:55 Angel Samaniego R.N. 00:03 12/19/16. BP: 108/50 taken on the left arm, via an automated monitor, while lying. HR: 113. RR: 26. O2 saturation: 97% on room air. Temp: 38.5 C. --00:04 Angel Samaniego R.N. Departure time: 0012 AM. Report was given to a nurse via a phone call. Report included patient's care, treatment, medications, reviewed medication reconcilliation, and condition (including any recent changes or anticipated changes). All questions were answered. Report was acknowledged and care was transferred. (Lulu). --00:12 Angel Samaniego R.N. Locked/Released at 12/19/2016 0:13 by Angel Samaniego R.N.
--- NOTE | 2016-12-18 22:36 | ED ORDER SUMMARY ---
..... Patient: JUAN MCRAE OrderSheet [facility] VisitID: [id number] [address] [place] [address] 41y, M Registration Date/Time: 12/18/2016 ORDER SHEET Weight: 58.9 kg (estimated) Allergies: Sulfa Antibiotics GENERAL ORDERS: Blood Culture (No) (N/A) Urgent (19:30 12/18/2016 Marlin Vaughn) (Ack 19:39 AMcQuoid ER Tech1) (20:21 HOShaughnessy R.N.) CBC w Diff Urgent (19:30 12/18/2016 Marlin Vaughn) (Ack 19:39 AMcQuoid ER Tech1) (20:21 HOShaughnessy R.N.) CMP Urgent (:12/18/2016 Marlin Vaughn) (Ack 19:39 AMcQuoid ER Tech1) (20:21 HOShaughnessy R.N.) UA-Culture if indicated Urgent (19:30 12/18/2016 Marlin Vuaghn) (Ack 19:39 AMcQuoid ER Tech1) (20:21 HOShaughnessy R.N.) Urine Drug Screen Urgent (19:30 12/18/2016 Marlin Vaughn) (Ack 19:39 AMcQuoid ER Tech1) (20:21 HOShaughnessy R.N.) Lactic Acid for Sepsis Protocol Urgent (19:30 12/18/2016 Marlin Vaughn) (Ack 19:39 AMcQuoid ER Tech1) (20:21 HOShaughnessy R.N.) PCT (Procalcitonin) Urgent (19:30 12/18/2016 Marlin Vaughn) (Ack 19:39 AMcQuoid ER Tech1) (20:21 HOShaughnessy R.N.) Chest 1V Urgent (21:43 12/18/2016 Marlin Vaughn) (Ack 21:51 AMcQuoid ER Tech1) (22:00 MCampbell) EKG - ER Stat (21:43 12/18/2016 Marlin Vaughn) (Ack 21:51 AMcQuoid ER Tech1) (22:06 AMcQuoid ER Tech1) US Abdomen Limited (No) Urgent (21:58 12/18/2016 Karla SAXENA) (Ack 22:01 AMcQuoid ER Tech1) (23:09 EInderbitzen R.N.) Blood Culture (No) (N/A) (3 total) Urgent (22:39 12/18/2016 Karla SAXENA) (Ack 22:42 AMcQuoid ER Tech1) (23:10 HOShaughnessy R.N.) CPK Urgent (22:41 12/18/2016 Karla SAXENA) (Ack 22:42 AMcQuoid ER Tech1) (22:43 AMcQuoid ER Tech1) Troponin-I Urgent (22:41 12/18/2016 Karla SAXENA) (Ack 22:42 AMcQuoid ER Tech1) (22:43 AMcQuoid ER Tech1) BNP Urgent (22:41 12/18/2016 Karla SAXENA) (Ack 22:42 AMcQuoid ER Tech1) (22:43 AMcQuoid ER Tech1) MEDICATION ORDERS: Vistaril IM 50 mg (NOW, Do not administer intravenously) (19:46 12/18/2016 HOSyoelughviktoria R.N. verbal order read back to Marlin Vaughn) (19:46 HOShaughviktoria R.N.) Tylenol PO 1,000 mg (NOW) (21:55 12/18/2016 HOShaughviktoria R.N. verbal order read back to Marlin Vaughn) (21:55 HOShaughcristiany R.N.) IV FLUIDS: IV NS : initial bolus 1000 mL (1000 mL/hr), then 1000 mL/hr for X1 (NOW) (19:27 12/18/2016 Marlin Vaughn) (20:20 HOShaughnessy R.N.) IV NS : initial bolus 1000 mL (1000 mL/hr), then 1000 mL/hr for X2 (NOW); Urgent (22:00 12/18/2016 Karla SAXENA) (22:08 HOShaughviktoria R.N.) Ceftriaxone IV 2 gm/50mL (NOW) (22:35 12/18/2016 Karla SAXENA) (22:45 HOShaughnessy R.N.) Zithromax IV 500 mg/250 mL (NOW) (22:35 12/18/2016 Karla SAXENA) (23:24 Nika R.N.) Vancomycin IV 1.5 gm/500 mL (NOW) (22:41 12/18/2016 Karla SAXENA) (Ack 0:11 Nika R.N.) Flagyl IV 500 mg/100mL (NOW) (23:10 12/18/2016 Karla SAXENA) (Ack 0:11 Nika R.N.) ORDER SHEET NOTES: [Electronically signed by Angel Samaniego R.N. (00:13 12/19/2016)] [Electronically signed by Truman Colin MD (00:26 12/19/2016)] [Electronically locked/signed by Angel Samaniego R.N. (00:13 12/19/2016)]
--- NOTE | 2016-12-18 23:24 | DIAGNOSTIC IMAGING REPORT ---
PROCEDURE: XR CHEST 1 VIEW INDICATION: COUGH TECHNIQUE: Portable AP view (allowing for 5 hours). COMPARISON: None. FINDINGS: Findings suggest mild parenchymal changes at the right lung base and left lower lung. Heart and mediastinum are normal. Thorax is normal. IMPRESSION: 1. Findings suggest parenchymal changes at the lung bases. Consider underlying pneumonia (e.g., aspiration, bacterial). 2. Otherwise negative chest.
--- NOTE | 2016-12-18 23:28 | DIAGNOSTIC IMAGING REPORT ---
PROCEDURE: US ABDOMEN ULTRASOUND-LIMITED INDICATION: ABNORMAL LFT TECHNIQUE: Drake scale and color Doppler sonographic images of the abdomen were obtained. COMPARISON: None. FINDINGS: Study is partially limited due to respiratory motion (patient unable to fully cooperate). Gallbladder is contracted with mild gallbladder wall thickening (3-5 mm). No evidence of gallstones. Common duct is normal (2 mm). Portions the liver, pancreas, aorta, and right kidney are seen, and are normal. IMPRESSION: 1. Gallbladder is partially contracted with mild gallbladder wall thickening. Findings are nonspecific and may be related to recent ingestion of food. No evidence of gallstones. 2. Otherwise negative ultrasound of the right upper quadrant.
[2016-12-19] VITALS (28 sets, daily range): BP systolic 93–131; BP diastolic 43–77
--- NOTE | 2016-12-19 00:19 | History & Physical Report ---
Admission Admit Date 12/18/16 History Chief Complaint Nausea and Vomiting, Found Down History of Present Illness Patient is a 41 year old male with a past medical history significant for IV drug abuse. He presents to the ER at [facility] after he was picked up by EMS found down at a restaurant earlier this evening. Hx is very limited given pts altered mental status. Hx is taken from an extensive chart review as well as some answers the patient is able to give me. Pt was found to be vomiting on the floor of a restaurant earlier today. He denies any abdominal pain at present. He does report recent cough with sputum producition as well as mild shortness of breath. He has also had intermittent tactile fevers over the last few days followed by chills. Pt denies any chest pain. In the ER, pt was found to have a significantly elevated temperature of 105 degrees F. No other complaints or concerns at this time. Patient History 1. Heroin abuse Social History Pt smokes tobacco daily and is a heavy heroin abuser. He denies consumption of alcohol. Family History Family history was reviewed; no changes noted. Medications and Allergies Medications Current Medications Sig/Darling Start time Last Medication Dose Route Stop Time Status Admin Azithromycin 500 MG Q24HR 12/19 0900 UNV Sodium Chloride 250 ML IV 12/21 1000 Ceftriaxone Sodium/ 50 ML Q24HR 12/19 0900 UNV Dextrose IV Pantoprazole Sodium 40 MG DAILY@0600 12/19 0600 UNV IV Albuterol Sulfate 2.5 MG Q3H PRN 12/19 0015 UNV IN Docusate Sodium 250 MG BID PRN 12/19 0015 UNV PO Hydromorphone HCl 1 MG Q6H PRN 12/19 0015 UNV IV Lorazepam 0.5 MG Q6H PRN 12/19 0015 UNV IV Naloxone HCl 0.4 MG PRN PRN 12/19 0015 UNV IV Ondansetron HCl 4 MG Q6H PRN 12/19 0015 UNV IV Sodium Chloride 1,000 ML ASDIRECTED 12/19 0015 UNV IV Sodium Chloride 1,000 ML ASDIRECTED 12/18 2330 UNV IV Pt does not take any medications at home. Allergies Coded Allergies: Sulfa Antibiotics (Severe, 11/17/16) Review of Systems Other All systems reviewed and are negative except for what has already been mentioned in the HPI. Physical Exam Vital Signs / I&Os TEMP: 105 degrees F HR: 129 BP: 107/55 RR: 20 SpO2: 94% Other GENERAL: NAD; Pt laying comfortably in bed HEENT: AT/NC; PERRLA, EOMI; MM Moist CARDIAC: RRR, No M/R/G appreciated PULM: Coarse breath sounds throughout bilateral lungs with crackles at bilateral bases; Normal respiratory effort at present ABD: Soft, NT, ND, Positive BS in all quadrants; No hepatosplenomegaly appreciated EXT: No C/C/E in bilateral upper and lower extremity; No calve tenderness bilaterally SKIN: Warm, dry, pink, and intact NEURO: Alert and oriented x3; Following all commands at times and other times he is somnolent PSYCH: Normal mood and affect LAB Results Laboratory Tests 12/19 12/18 12/18 0009 2252 2009 Chemistry Lactic Acid Cancelled Procalcitonin (0 - 0.5 ng/mL) 79.7 Toxicology Urine Opiates Screen (NEGATIVE) POSITIVE Urine Methadone Screen (NEGATIVE) NEGATIVE Ur Barbiturates Screen (NEGATIVE) NEGATIVE U Amphetamin/Meth Scrn (NEGATIVE) POSITIVE MDMA (Ecstasy) Screen (NEGATIVE) NEGATIVE U Benzodiazepines Scrn (NEGATIVE) NEGATIVE Urine Cocaine Screen (NEGATIVE) NEGATIVE U Cannabinoids Screen (NEGATIVE) NEGATIVE Urines Urine Color YELLOW Urine Appearance CLEAR Urine pH (5.0 - 8.0) 5.5 Ur Specific [place] (1.010 - 1.030) <= 1.005 Urine Protein (NEGATIVE) NEGATIVE Urine Ketones (NEGATIVE) NEGATIVE Urine Blood (NEGATIVE) 2+ Urine Nitrite (NEGATIVE) NEGATIVE Urine Bilirubin (NEGATIVE) NEGATIVE Urine Urobilinogen (0.2 - 1.0 EU/dL) 0.2 Ur Leukocyte Esterase (NEGATIVE) NEGATIVE Urine RBC (0 - 1 rbc/hpf) 1-3 Urine WBC (0 - 1 wbc/hpf) RARE Ur Epithelial Cells (0 - 5 EPI/hpf) NONE SEEN Urine Bacteria (NONE SEEN) NONE SEEN Urine Glucose (NEGATIVE) NEGATIVE Urine Comment CULT NOT INDICATED 12/18 Chemistry Plasma Sodium (136 - 145 mmol/L) 133 Plasma Potassium (3.5 - 5.1 mmol/L) 4.0 Plasma Chloride (98 - 107 mmol/L) 98 CO2 (Enzymatic) (21 - 32 mmol/L) 26 BUN (7 - 18 mg/dL) 20 Creatinine (0.6 - 1.3 mg/dL) 1.0 Est GFR ( Amer) (mL/min) >60 Est GFR (Non-Af Amer) (mL/min) >60 Glucose (70 - 110 mg/dL) 92 Lactic Acid (0.4 - 2.0 mmol/L) 2.2 Plasma Calcium (8.5 - 10.1 mg/dL) 8.5 Total Bilirubin (0.0 - 1.0 mg/dL) 1.3 AST (15 - 37 U/L) 287 ALT (12 - 78 U/L) 186 Alkaline Phosphatase (46 - 116 U/L) 286 Creatine Kinase (24 - 260 U/L) 182 Troponin (0.00 - 1.5 ng/mL) <0.05 B-Natriuretic Peptide (5 - 100 pg/ml) 10.2 Total Protein (6.4 - 8.2 g/dL) 7.8 Albumin (3.3 - 5.0 g/dL) 2.7 Hematology WBC (4.5 - 11.5 K/uL) 8.4 RBC (4.50 - 5.90 M/uL) 4.28 Hgb (13.5 - 17.5 gm/dL) 12.5 Hct (41.0 - 53.0 %) 37.1 MCV (80 - 100 fL) 87 MCH (26 - 34 pg) 29 RDW (11.6 - 14.8 %) 15.3 Neut % (Auto) (50 - 75 %) 92.2 Lymph % (Auto) (25 - 40 %) 7.1 [place] % (Auto) (3 - 14 %) 0.5 Eos % (Auto) (0 - 4 %) 0.2 Baso % (Auto) (0 - 2 %) 0 Plt Count, EDTA (150 - 400 K/uL) 258 PUBS MCHC (31 - 37 g/dL) 34 Microbiology Date/Time Procedure - Status Source Growth 12/18 2306 Blood Culture - RECD BLOOD 12/18 2009 Blood Culture - RECD BLOOD 12/18 2009 Blood Culture - RECD BLOOD Imaging XR CHEST 1 VIEW INDICATION: COUGH TECHNIQUE: Portable AP view (allowing for 5 hours). COMPARISON: None. FINDINGS: Findings suggest mild parenchymal changes at the right lung base and left lower lung. Heart and mediastinum are normal. Thorax is normal. IMPRESSION: 1. Findings suggest parenchymal changes at the lung bases. Consider underlying pneumonia (e.g., aspiration, bacterial). 2. Otherwise negative chest. Plan - Pt has severe sepsis secondary to pneumonia as evidenced by his significant fever, locus of infection, tachycardia, and significantly elevated procalcitonin - Pt has been bolused with 3 liters of NS in the ER - Start IV Normal Saline at 150 mL/hr - Blood cultures x3 drawn in the ER - Will order an ECHO for the morning given the presence of a faint murmur initially, to rule out endocarditis - Check serial lactate level - Check CRP now - Repeat Procalcitonin in AM - Start IV Rocephin and IV Azithromycin now - Repeat CBC with diff and BMP in AM - Monitor closely in ICU 2. Pneumonia Plan - Present on admission - Chest x-ray confirms presence of pneumonia - This is likely community acquired - Start IV Rocephin - Start IV Azithromycin - Albuterol Nebs q 3 hours PRN - Supplemental O2 to keep SpO2 greater than 92% - Will order a urine Strep Pneumoniae Ag now - Will order a urine Legionella Ag now - Check respiratory viral PCR now also 3. IV drug abuse Plan - Pt has a hx of significant heroin abuse - Anticipate pt to start withdrawing within the next day or so - Monitor closely - Supportive care 60 minutes critical care time spent managing pts severe sepsis and pneumonia.
--- NOTE | 2016-12-19 00:27 | ED MAR SUMMARY ---
..... Medication Administration Record [facility] [address] [place] [address] Patient: JUAN MCRAE Visit ID: [id number] 41y, M Weight: 58.9 kg Height/Length: 72 in BMI: 17.6 ALLERGIES: Sulfa Antibiotics Given 19:46 12/18/2016 Angel Samaniego R.N. Medication Administered: VISTARIL [IM] (HYDROXYZINE HCL), Dose: 50 mg IM. Medication Ordered: Vistaril IM 50 mg (NOW, Do not administer intravenously). Start 20:20 12/18/2016 Angel Samaniego R.N., Stop 21:55 12/18/2016 Angel Samaniego R.N. Medication Administered: IV NS (SALINE), Dose: IV Fluids, Bolus: 1000 mL wide open, Site: #2 right AC. Medication Ordered: IV NS : initial bolus 1000 mL (1000 mL/hr), then 1000 mL/hr for X1 (NOW). Given 21:55 12/18/2016 Angel Samaniego R.N. Medication Administered: TYLENOL [PO] (ACETAMINOPHEN), Dose: 1000 mg Tablets PO. Medication Ordered: Tylenol PO 1,000 mg (NOW). Start 22:08 12/18/2016 Angel Samaniego R.N., Stop 23:23 12/18/2016 Angel Samaniego R.N. Medication Administered: IV NS (SALINE), Dose: IV Fluids, Bolus: 1000 mL wide open, Dispensed: 1000 mL bag, Site: #2 right AC. Medication Ordered: IV NS : initial bolus 1000 mL (1000 mL/hr), then 1000 mL/hr for X2 (NOW); Urgent. Start 22:45 12/18/2016 Angel Samaniego R.N., Stop 23:24 12/18/2016 Angel Samaniego R.N. Medication Administered: CEFTRIAXONE [IVPB], Dose: 2 gm IVPB over 30 minute(s), Rate: 100 mL/hr, Site: #2 right AC. Medication Ordered: Ceftriaxone IV 2 gm/50mL (NOW). Start 23:24 12/18/2016 Angel Samaniego R.N., Continued Upon Admission 00:11 12/19/2016 Angel Samaniego R.N. Medication Administered: ZITHROMAX [IVPB] (AZITHROMYCIN), Dose: 500 mg IVPB over 1 hour(s), Rate: 250 mL/hr, Site: #2 right AC. Medication Ordered: Zithromax IV 500 mg/250 mL (NOW). Start 23:24 12/18/2016 Angel Samaniego R.N., Stop 23:25 12/18/2016 Angel Samaniego R.N. Medication Administered: IV NS (SALINE), Dose: IV Fluids, Bolus: 1000 mL wide open, Site: #2 right AC. Medication Ordered: IV NS : initial bolus 1000 mL (1000 mL/hr), then 1000 mL/hr for X2 (NOW); Urgent.
--- NOTE | 2016-12-19 00:27 | ED DISCHARGE INSTRUCTIONS ---
Patient: JUAN MCRAE General Instructions [facility] VisitID: [id number] [address] [place] [address] 41y, M Registration Date/Time: 12/18/2016 Sepsis. Cholecystitis. Pneumonia. (Electronically signed by Truman Colin MD 12/19/2016 0:26)
--- NOTE | 2016-12-19 00:27 | ED DISCHARGE INSTRUCTIONS ---
Patient: JUAN MCRAE General Instructions [facility] VisitID: [id number] [address] [place] [address] 41y, M Registration Date/Time: 12/18/2016 Sepsis. Cholecystitis. Pneumonia. (Electronically signed by Truman Colin MD 12/19/2016 0:26)
--- NOTE | 2016-12-19 00:27 | ED MED RECONCILIATION SUMMARY ---
Patient: JUAN MCRAE Medication Reconciliation Report [facility] VisitID: [id number] [address] [place] [address] 41y, M Registration Date/Time: 12/18/2016 Weight: 58.9 kg Height/Length: 72 in. BMI: 17.6 ALLERGIES: Sulfa Antibiotics The patient's Home Medications are listed below: NONE. The source(s) of the original Home Medication information: Not obtained. The following Medications were given to the patient in the Emergency Department: Vistaril [IM] IM 50 mg, administered: 12/18/2016 7:46:00 PM IV NS IV Fluids bolus 1000 mL wide open, administered: 12/18/2016 8:20:00 PM Tylenol [PO] PO 1000 mg, administered: 12/18/2016 9:55:00 PM IV NS IV Fluids bolus 1000 mL wide open, administered: 12/18/2016 10:08:00 PM Ceftriaxone [IVPB] IVPB bolus 0, then 2 gm 100 mL/hr, administered: 12/18/2016 10:45:00 PM IV NS IV Fluids bolus 1000 mL wide open, administered: 12/18/2016 11:24:00 PM Zithromax [IVPB] IVPB bolus 0, then 500 mg 250 mL/hr, administered: 12/18/2016 11:24:00 PM The following Medications were prescribed to the patient: None.
--- NOTE | 2016-12-19 00:27 | ED MAR SUMMARY ---
..... Medication Administration Record [facility] [address] [place] [address] Patient: JUAN MCRAE Visit ID: [id number] 41y, M Weight: 58.9 kg Height/Length: 72 in BMI: 17.6 ALLERGIES: Sulfa Antibiotics Given 19:46 12/18/2016 Angel Samaniego R.N. Medication Administered: VISTARIL [IM] (HYDROXYZINE HCL), Dose: 50 mg IM. Medication Ordered: Vistaril IM 50 mg (NOW, Do not administer intravenously). Start 20:20 12/18/2016 Angel Samaniego R.N., Stop 21:55 12/18/2016 Angel Samaniego R.N. Medication Administered: IV NS (SALINE), Dose: IV Fluids, Bolus: 1000 mL wide open, Site: #2 right AC. Medication Ordered: IV NS : initial bolus 1000 mL (1000 mL/hr), then 1000 mL/hr for X1 (NOW). Given 21:55 12/18/2016 Angel Samaniego R.N. Medication Administered: TYLENOL [PO] (ACETAMINOPHEN), Dose: 1000 mg Tablets PO. Medication Ordered: Tylenol PO 1,000 mg (NOW). Start 22:08 12/18/2016 Angel Samaniego R.N., Stop 23:23 12/18/2016 Angel Samaniego R.N. Medication Administered: IV NS (SALINE), Dose: IV Fluids, Bolus: 1000 mL wide open, Dispensed: 1000 mL bag, Site: #2 right AC. Medication Ordered: IV NS : initial bolus 1000 mL (1000 mL/hr), then 1000 mL/hr for X2 (NOW); Urgent. Start 22:45 12/18/2016 Angel Samaniego R.N., Stop 23:24 12/18/2016 Angel Samaniego R.N. Medication Administered: CEFTRIAXONE [IVPB], Dose: 2 gm IVPB over 30 minute(s), Rate: 100 mL/hr, Site: #2 right AC. Medication Ordered: Ceftriaxone IV 2 gm/50mL (NOW). Start 23:24 12/18/2016 Angel Samaniego R.N., Continued Upon Admission 00:11 12/19/2016 Angel Samaniego R.N. Medication Administered: ZITHROMAX [IVPB] (AZITHROMYCIN), Dose: 500 mg IVPB over 1 hour(s), Rate: 250 mL/hr, Site: #2 right AC. Medication Ordered: Zithromax IV 500 mg/250 mL (NOW). Start 23:24 12/18/2016 Angel Samaniego R.N., Stop 23:25 12/18/2016 Angel Samaniego R.N. Medication Administered: IV NS (SALINE), Dose: IV Fluids, Bolus: 1000 mL wide open, Site: #2 right AC. Medication Ordered: IV NS : initial bolus 1000 mL (1000 mL/hr), then 1000 mL/hr for X2 (NOW); Urgent.
--- NOTE | 2016-12-19 00:27 | ED MED RECONCILIATION SUMMARY ---
Patient: JUAN MCRAE Medication Reconciliation Report [facility] VisitID: [id number] [address] [place] [address] 41y, M Registration Date/Time: 12/18/2016 Weight: 58.9 kg Height/Length: 72 in. BMI: 17.6 ALLERGIES: Sulfa Antibiotics The patient's Home Medications are listed below: NONE. The source(s) of the original Home Medication information: Not obtained. The following Medications were given to the patient in the Emergency Department: Vistaril [IM] IM 50 mg, administered: 12/18/2016 7:46:00 PM IV NS IV Fluids bolus 1000 mL wide open, administered: 12/18/2016 8:20:00 PM Tylenol [PO] PO 1000 mg, administered: 12/18/2016 9:55:00 PM IV NS IV Fluids bolus 1000 mL wide open, administered: 12/18/2016 10:08:00 PM Ceftriaxone [IVPB] IVPB bolus 0, then 2 gm 100 mL/hr, administered: 12/18/2016 10:45:00 PM IV NS IV Fluids bolus 1000 mL wide open, administered: 12/18/2016 11:24:00 PM Zithromax [IVPB] IVPB bolus 0, then 500 mg 250 mL/hr, administered: 12/18/2016 11:24:00 PM The following Medications were prescribed to the patient: None.
--- NOTE | 2016-12-19 09:56 | Progress Note ---
Subjective General Note Date: December 19, 2016 Admission Date: December 19, 2016 Hospital Day: 1 PCP: None Status: Inpatient Advanced Directive: FULL CODE Room: 301 Brief History: The patient is a 41-year-old white male with a significant past medical history of illicit drug use-Heroin, methamphetamine who presented to [facility] emergency department on the day of admission secondary to complaints of generalized weakness, nausea, vomiting, and temperature elevation. [facility] ER evaluation was consistent with pneumonia, sepsis, illicit drug use heroin/methamphetamine. Secondary to the above, the patient was admitted by Colt Meza M.D. for further evaluation and treatment. For other history present illness, past medical history, family history, social history, review of systems, and admission physical examination please see the patient's history and physical examination and ER visit note in the patient's medical record. Subjective: The patient states he has diffuse body aches. No other specific complaints. Denies withdrawal at this time. Patient requests: No specific Medications and Allergies Medications Current Medications Sig/Darling Start time Last Medication Dose Route Stop Time Status Admin Ceftriaxone Sodium/ 50 ML Q24H 12/19 2200 CAN Dextrose IV Azithromycin 500 MG Q24H 12/19 2100 AC Sodium Chloride 250 ML IV 12/21 2200 Piperacillin Sod/ 4.5 GM Q6HR 12/19 1200 AC Tazobactam Sod IV Sodium Chloride 100 ML Potassium Chloride/ 100 ML 1130 12/19 1130 AC Water IV 12/19 1330 Potassium Chloride/ 100 ML 0930 12/19 0930 AC Water IV 12/19 1130 Vancomycin HCl/ 200 ML .[PER PHARMACY] 12/19 0915 CAN Dextrose IV Influenza Virus 0.5 ML 12/19 0900 AC Vaccine IM Vancomycin/Sodium 250 ML 0900 12/19 0900 AC 12/19 Chloride IV 12/19 1000 0911 Pantoprazole Sodium 40 MG DAILY@0600 12/19 0600 AC 12/19 IV 0523 Norepinephrine 4 MG ASDIRECTED PRN 12/19 0315 AC Bitartrate IV Dextrose/Water 250 ML Albuterol Sulfate 2.5 MG RTQ3H PRN 12/19 0015 AC IN Docusate Sodium 250 MG BID PRN 12/19 0015 AC PO Hydromorphone HCl 1 MG Q6H PRN 12/19 0015 AC IV Lorazepam 0.5 MG Q6H PRN 03/01 0015 AC IV Naloxone HCl 0.4 MG PRN PRN 12/19 14 AC IV Ondansetron HCl 4 MG Q6H PRN 12/19 14 AC IV Sodium Chloride 1,000 ML ASDIRECTED 12/19 14 AC 12/19 IV 0239 Allergies Coded Allergies: Sulfa Antibiotics (Severe, 11/17/16) Physical Exam Vital Signs / I&Os Vital Signs Date Time Temp Pulse Resp B/P Pulse O2 O2 Flow FiO2 Ox Delivery Rate 12/19 0901 76 14 110/64 100 Room Air 12/19 0854 4.0 12/19 0813 80 16 105/66 99 Room Air 12/19 0654 36.3 85 15 108/60 100 Mask 4.0 12/19 0619 97.2 81 15 110/65 99 Mask 4.0 12/19 0601 87 20 96/52 100 Mask 4.0 12/19 0512 97/48 12/19 0410 97.7 87 14 93/53 100 Mask 4.0 12/19 0347 97.7 12/19 0323 97.5 91 14 104/56 99 Mask 4.0 12/19 0238 97.9 12/19 0238 102/55 12/19 0131 102/49 12/19 0113 96/46 03 0100 93/44 03 0052 100.0 102 20 94/43 98 Mask 6.0 12/19 0046 OXYMASK 6.0 General Appearance Oriented X3, Cooperative, No acute distress, slightly lethargic Lungs Clear to auscultation Cardiovascular Regular rate and rhythm, Normal S1 and S2 Abdomen Normal bowel sounds, Soft, No tenderness, No guarding Extremities No cyanosis, No clubbing, erythematous feet/left hand Neurological Cranial nerves intact, No lateralizing signs Psych/Mental Status Mental status normal, slightly lethargic LAB Results Laboratory Tests 12/19 12/19 12/19 12/19 12/19 0735 0530 0530 0530 0235 Chemistry Plasma Sodium (136 - 145 mmol/L) 142 Plasma Potassium (3.5 - 5.1 mmol/L) 3.4 Plasma Chloride (98 - 107 mmol/L) 108 CO2 (Enzymatic) (21 - 32 mmol/L) 22 BUN (7 - 18 mg/dL) 14 Creatinine (0.6 - 1.3 mg/dL) 0.8 Est GFR ( Amer) (mL/min) >60 Est GFR (Non-Af Amer) (mL/min) >60 Glucose (70 - 110 mg/dL) 97 Lactic Acid (0.4 - 2.0 mmol/L) 1.0 1.4 Cancelled Plasma Calcium (8.5 - 10.1 mg/dL) 7.1 Total Bilirubin (0.0 - 1.0 mg/dL) 0.7 AST (15 - 37 U/L) 155 ALT (12 - 78 U/L) 147 Alkaline Phosphatase (46 - 116 U/L) 145 Total Protein (6.4 - 8.2 g/dL) 6.1 Albumin (3.3 - 5.0 g/dL) 2.1 Procalcitonin (0 - 0.5 ng/mL) 149.2 Hematology WBC (4.5 - 11.5 K/uL) 37.9 RBC (4.50 - 5.90 M/uL) 3.53 Hgb (13.5 - 17.5 gm/dL) 10.4 Hct (41.0 - 53.0 %) 31.2 MCV (80 - 100 fL) 88 MCH (26 - 34 pg) 30 RDW (11.6 - 14.8 %) 15.2 Neut % (Auto) (50 - 75 %) 52 Lymph % (Auto) (25 - 40 %) 5 [place] % (Auto) (3 - 14 %) 2 Eos % (Auto) (0 - 4 %) 0 Baso % (Auto) (0 - 2 %) 0 Band Neutrophils % (0 - 8 %) 41 Metamyelocytes % (0 - 1 %) 0 Myelocytes (0 - 1 %) 0 Other Cell Type 0 Plt Count, EDTA (150 - 400 K/uL) 223 PUBS MCHC (31 - 37 g/dL) 34 12/19 12/19 12/19 12/19 0035 0035 0035 0009 Chemistry Lactic Acid (0.4 - 2.0 mmol/L) 1.0 Cancelled Plasma Magnesium (1.8 - 2.4 mg/dL) 1.5 C-Reactive Protein (0.0 - 0.9 mg/dL) 5.7 12/18 12/18 12/18 12/18 9552 2009 2009 2009 Chemistry Lactic Acid (0.4 - 2.0 mmol/L) 2.2 Creatine Kinase (24 - 260 U/L) 182 Troponin (0.00 - 1.5 ng/mL) <0.05 Procalcitonin (0 - 0.5 ng/mL) 79.7 Toxicology Urine Opiates Screen (NEGATIVE) POSITIVE Urine Methadone Screen (NEGATIVE) NEGATIVE Ur Barbiturates Screen (NEGATIVE) NEGATIVE U Amphetamin/Meth Scrn (NEGATIVE) POSITIVE MDMA (Ecstasy) Screen (NEGATIVE) NEGATIVE U Benzodiazepines Scrn (NEGATIVE) NEGATIVE Urine Cocaine Screen (NEGATIVE) NEGATIVE U Cannabinoids Screen (NEGATIVE) NEGATIVE Urines Urine Color YELLOW Urine Appearance CLEAR Urine pH (5.0 - 8.0) 5.5 Ur Specific [place] (1.010 - 1.030) <= 1.005 Urine Protein (NEGATIVE) NEGATIVE Urine Ketones (NEGATIVE) NEGATIVE Urine Blood (NEGATIVE) 2+ Urine Nitrite (NEGATIVE) NEGATIVE Urine Bilirubin (NEGATIVE) NEGATIVE Urine Urobilinogen (0.2 - 1.0 EU/dL) 0.2 Ur Leukocyte Esterase (NEGATIVE) NEGATIVE Urine RBC (0 - 1 rbc/hpf) 1-3 Urine WBC (0 - 1 wbc/hpf) RARE Ur Epithelial Cells (0 - 5 EPI/hpf) NONE SEEN Urine Bacteria (NONE SEEN) NONE SEEN Urine Glucose (NEGATIVE) NEGATIVE Urine Comment CULT NOT INDICATED 12/18 Chemistry Plasma Sodium (136 - 145 mmol/L) 133 Plasma Potassium (3.5 - 5.1 mmol/L) 4.0 Plasma Chloride (98 - 107 mmol/L) 98 CO2 (Enzymatic) (21 - 32 mmol/L) 26 BUN (7 - 18 mg/dL) 20 Creatinine (0.6 - 1.3 mg/dL) 1.0 Est GFR ( Amer) (mL/min) >60 Est GFR (Non-Af Amer) (mL/min) >60 Glucose (70 - 110 mg/dL) 92 Plasma Calcium (8.5 - 10.1 mg/dL) 8.5 Total Bilirubin (0.0 - 1.0 mg/dL) 1.3 AST (15 - 37 U/L) 287 ALT (12 - 78 U/L) 186 Alkaline Phosphatase (46 - 116 U/L) 286 B-Natriuretic Peptide (5 - 100 pg/ml) 10.2 Total Protein (6.4 - 8.2 g/dL) 7.8 Albumin (3.3 - 5.0 g/dL) 2.7 Hematology WBC (4.5 - 11.5 K/uL) 8.4 RBC (4.50 - 5.90 M/uL) 4.28 Hgb (13.5 - 17.5 gm/dL) 12.5 Hct (41.0 - 53.0 %) 37.1 MCV (80 - 100 fL) 87 MCH (26 - 34 pg) 29 RDW (11.6 - 14.8 %) 15.3 Neut % (Auto) (50 - 75 %) 92.2 Lymph % (Auto) (25 - 40 %) 7.1 [place] % (Auto) (3 - 14 %) 0.5 Eos % (Auto) (0 - 4 %) 0.2 Baso % (Auto) (0 - 2 %) 0 Plt Count, EDTA (150 - 400 K/uL) 258 PUBS MCHC (31 - 37 g/dL) 34 Microbiology Date/Time Procedure - Status Source Growth 12/19 0601 MRSA Screen - RECD NASAL 12/18 2306 Blood Culture - RECD BLOOD 12/18 2009 Blood Culture - RECD BLOOD 12/18 2009 Blood Culture - RECD BLOOD Assessment and Plan Problem List 1. Pneumonia Plan -Patient with findings of pneumonia -Antimicrobials changed to Zithromax, Zosyn, and vancomycin -Await blood cultures -Monitor 2. Sepsis Plan -Patient with findings of sepsis -Antimicrobials as noted above -Blood pressure normalized -Lactic acid level decreasing -Elevated Procalcitonin with elevated level today -Continue present therapy -Check echocardiogram to rule out endocarditis in the setting of intravenous drug use 3. Hepatitis C infection Plan -Patient with history of hepatitis C -We'll review previous evaluation -Recommend therapeutic intervention based on previous workup and treatment plan 4. Illicit drug use Status Chronic Onset Date Unknown Plan -Patient with history of illicit drug use-methamphetamine/heroin -Opiate replacement therapy with methadone as needed -Referral to treatment program post hospitalization working with discharge planning Current status: Unstable, fair Anticipated discharge date: Anticipated discharge in 3-4 days Anticipated discharge placement: Home Patient care time: Time spent in chart review, patient interview, physical exam, CPOE, and care documentation: 35 minutes Visit to patient today: 2 Complexity of care: High E&M Codes Rounding: Inpt-High/[id number]
--- NOTE | 2016-12-19 17:19 | DIAGNOSTIC IMAGING REPORT ---
REFERRING PHYSICIAN/PROVIDER: Colt Meza MD [employer] DIRECTOR: Mele Gutierrez Jr MD INDICATION: IV DRUG USE, SEPTIC ADMIT, CRITICAL WBC Procedure: A two-dimensional transthoracic echocardiogram with color flow and Doppler was performed. The study quality was technically good. The patient was in normal sinus rhythm during the exam. Left Ventricle: The left ventricle is normal in size, wall thickness, and systolic function without any focal wall motion abnormalities. There is no ventricular septal defect visualized. The ejection fraction is estimated to be 55-60%. Assessment of diastolic parameters indicates normal left ventricular diastolic function and normal filling pressures. Right Ventricle: The right ventricle is normal in size and function. Atria: The left atrial size is normal. Right atrial size is normal. Chiari network (normal variant) is noted. The interatrial septum is intact with no evidence for an atrial septal defect. Mitral Valve: The mitral valve is normal in structure and function. There is trace mitral regurgitation. Aortic Valve: The aortic valve is trileaflet. The aortic valve opens well. There is no aortic regurgitation. Tricuspid Valve: The tricuspid valve leaflets are thin and pliable. There is a trace or physiologic amount of tricuspid regurgitation. Pulmonary artery pressures cannot be estimated because of the lack of a measurable TR jet velocity. Pulmonic Valve: The pulmonic valve is not well visualized. The pulmonic valve is not well seen, but is grossly normal. There is a trace or physiologic amount of pulmonic regurgitation. There is no obvious valvular vegetation identified on this exam. Consider CINDY if there is a high degree of clinical suspicion for endocarditis and clinically appropriate. Great Vessels: The aortic root is normal size. The ascending aorta is normal in size. The IVC is of normal diameter and collapses greater than 50% with a sniff. This suggests a low right atrial pressure of 3 mm Hg. Pericardium/ Pleura There is no pericardial effusion. IMPRESSION: The left ventricle is normal in size, wall thickness, and systolic function without any focal wall motion abnormalities. The ejection fraction is estimated to be 55-60%. The right ventricle is normal in size and function. Pulmonary artery pressures cannot be estimated because of the lack of a measurable TR jet velocity. The left atrial size is normal. Right atrial size is normal. Chiari network (normal variant) is noted. There is no obvious valvular vegetation identified on this exam. Consider CINDY if there is a high degree of clinical suspicion for endocarditis and clinically appropriate. The aortic root is normal size.
[2016-12-20] VITALS (13 sets, daily range): BP systolic 111–130; BP diastolic 61–86
--- NOTE | 2016-12-20 18:18 | Progress Note ---
Subjective General Note Date: December 20, 2016 Admission Date: December 19, 2016 Hospital Day: 2 PCP: None Status: Inpatient Advanced Directive: FULL CODE Room: 301 Brief History: The patient is a 41-year-old white male with a significant past medical history of illicit drug use-L1, methamphetamine who presented to [facility] emergency department on the day of admission secondary to complaints of generalized weakness, nausea, vomiting, and temperature elevation. [facility] ER evaluation was consistent with pneumonia, sepsis, illicit drug use heroin/methamphetamine. Secondary to the above, the patient was admitted by Colt Meza M.D. for further evaluation and treatment. For other history present illness, past medical history, family history, social history, review of systems, and admission physical examination please see the patient's history and physical examination and ER visit note in the patient's medical record. Subjective: The patient states he has diffuse body aches. No other specific complaints. The patient states he is experiencing mild withdrawal symptoms at this time. Wishes opiate replacement therapy. Patient requests: No specific Medications and Allergies Medications Current Medications Sig/Darling Start time Last Medication Dose Route Stop Time Status Admin Methadone HCl 20 MG Q8H 12/20 1330 AC 12/20 PO 1405 Azithromycin 500 MG Q24H 12/19 2100 AC 12/19 Sodium Chloride 250 ML IV 12/21 Vancomycin/Sodium 250 ML Q8HR 12/19 1400 AC 12/20 Chloride IV 1513 Piperacillin Sod/ 4.5 GM Q6HR 12/19 1200 AC 12/20 Tazobactam Sod IV 1755 Sodium Chloride 100 ML Influenza Virus 0.5 ML 0900 12/19 0900 AC Vaccine IM Pantoprazole Sodium 40 MG DAILY@0600 12/19 0600 AC 12/20 IV 0619 Norepinephrine 4 MG ASDIRECTED PRN 12/19 0315 AC Bitartrate IV Dextrose/Water 250 ML Albuterol Sulfate 2.5 MG RTQ3H PRN 12/19 0015 AC IN Docusate Sodium 250 MG BID PRN 12/19 0015 AC PO Hydromorphone HCl 1 MG Q6H PRN 12/19 0015 AC 12/20 IV 1050 Lorazepam 0.5 MG Q6H PRN 12/19 0015 AC IV Naloxone HCl 0.4 MG PRN PRN 12/19 0015 AC IV Ondansetron HCl 4 MG Q6H PRN 12/19 0015 AC IV Allergies Coded Allergies: Sulfa Antibiotics (Severe, 11/17/16) Physical Exam Vital Signs / I&Os Vital Signs Date Time Temp Pulse Resp B/P Pulse O2 O2 Flow FiO2 Ox Delivery Rate 12/20 1800 98.4 78 16 120/61 94 Room Air 03/ 1443 98.1 78 24 123/75 96 Room Air 03/ 1001 98.2 69 18 121/75 98 Room Air 03/ 0800 88 18 117/72 98 Room Air 03/02 0701 99.0 82 18 130/81 98 Room Air 03/02 0648 98.8 03/02 0611 83 16 129/84 95 03/02 0500 99.1 83 17 111/68 96 03/02 0400 99.1 81 130/86 98 Room Air 03/02 0300 75 16 114/65 97 03/02 0259 99.0 03/02 0200 99.0 81 16 121/70 100 Room Air 03/ 0108 99.7 79 17 118/69 98 03/02 0012 99.5 94 17 125/74 97 03/01 2300 99.5 86 109/55 97 Room Air 12/19 2223 99.7 94 16 109/60 99 Room Air 12/19 2204 83 16 105/60 98 12/19 2109 80 117/65 98 12/20 2011 99.0 71 20 117/70 97 12/19 1944 89 12/19 1933 Room Air 12/19 1910 97 20 110/46 96 I&O 12/20 0000 / 1600 12/19 0800 Intake Total 2411 2935 1400 Output Total 1450 2235 3250 Balance 961 700 -1850 General Appearance Alert, Oriented X3, Cooperative, No acute distress Lungs scattered rhonchi, otherwise clear to auscultation Cardiovascular Regular rate and rhythm, Normal S1 and S2, No murmurs, gallops, rubs Abdomen Normal bowel sounds, Soft, No tenderness Extremities No cyanosis, No clubbing Neurological Cranial nerves intact, No lateralizing signs Psych/Mental Status Mental status normal, Mood normal LAB Results Laboratory Tests 12/20 12/20 1335 0520 Chemistry Plasma Sodium (136 - 145 mmol/L) 143 Plasma Potassium (3.5 - 5.1 mmol/L) 3.8 Plasma Chloride (98 - 107 mmol/L) 110 CO2 (Enzymatic) (21 - 32 mmol/L) 25 BUN (7 - 18 mg/dL) 15 Creatinine (0.6 - 1.3 mg/dL) 0.8 Est GFR ( Amer) (mL/min) >60 Est GFR (Non-Af Amer) (mL/min) >60 Glucose (70 - 110 mg/dL) 86 Plasma Calcium (8.5 - 10.1 mg/dL) 7.6 Total Bilirubin (0.0 - 1.0 mg/dL) 0.4 AST (15 - 37 U/L) 82 ALT (12 - 78 U/L) 104 Alkaline Phosphatase (46 - 116 U/L) 112 Total Protein (6.4 - 8.2 g/dL) 5.8 Albumin (3.3 - 5.0 g/dL) 1.8 Hematology WBC (4.5 - 11.5 K/uL) 17.7 RBC (4.50 - 5.90 M/uL) 3.58 Hgb (13.5 - 17.5 gm/dL) 10.1 Hct (41.0 - 53.0 %) 31.3 MCV (80 - 100 fL) 87 MCH (26 - 34 pg) 28 RDW (11.6 - 14.8 %) 15.6 Neut % (Auto) (50 - 75 %) 65 Lymph % (Auto) (25 - 40 %) 21 [place] % (Auto) (3 - 14 %) 6 Eos % (Auto) (0 - 4 %) 0 Baso % (Auto) (0 - 2 %) 0 Band Neutrophils % (0 - 8 %) 8 Metamyelocytes % (0 - 1 %) 0 Myelocytes (0 - 1 %) 0 Other Cell Type 0 Plt Count, EDTA (150 - 400 K/uL) 224 RBC Morphology (95257 A) 1+ MICROCYTOSIS PUBS MCHC (31 - 37 g/dL) 32 Toxicology Vancomycin Trough (10.0 - 20.0 ug/mL) 10.6 Assessment and Plan Problem List 1. Pneumonia Plan -stable -Afebrile -WBC improved -Cultures negative -Continue vancomycin, Zosyn, Zithromax -Consider switch to oral medications in a.m. if cultures remain negative 2. Sepsis Plan -resolved -See above 3. Hepatitis C infection Plan -check hepatitis C, hepatitis C viral load, genotype -Recommend outpatient treatment based on above 4. Illicit drug use Status Chronic Onset Date Unknown Plan -patient with history of illicit drug use-methamphetamine, heroin -Opiate replacement therapy with methadone 20 mg by mouth every 8 hours -Monitor -Enrollment in drug treatment program post hospitalization with aid of discharge planning Current status: Fair, improved Anticipated discharge date: Anticipated discharge in 2-3 days Anticipated discharge placement: Home, outpatient drug treatment program Patient care time: Time spent in chart review, patient interview, physical exam, CPOE, and care documentation: 25 minutes Visit to patient today: 1 Complexity of care: Moderate E&M Codes Rounding: Inpt-Moderate/[id number]
[2016-12-21 02:18] VITALS: BP 119/72
[2016-12-21 06:35] VITALS: BP 113/71
[2016-12-21 10:19] VITALS: BP 110/72
[2016-12-21 14:25] VITALS: BP 116/64
--- NOTE | 2016-12-21 18:08 | Progress Note ---
Subjective General Note Date: December 21, 2016 Admission Date: December 19, 2016 Hospital Day: 3 PCP: None Status: Inpatient Advanced Directive: FULL CODE Room: 301 Brief History: The patient is a 41-year-old white male with a significant past medical history of illicit drug use-L1, methamphetamine who presented to [facility] emergency department on the day of admission secondary to complaints of generalized weakness, nausea, vomiting, and temperature elevation. [facility] ER evaluation was consistent with pneumonia, sepsis, illicit drug use heroin/methamphetamine. Secondary to the above, the patient was admitted by Colt Meza M.D. for further evaluation and treatment. For other history present illness, past medical history, family history, social history, review of systems, and admission physical examination please see the patient's history and physical examination and ER visit note in the patient's medical record. Subjective: The patient states he is doing somewhat better today. No specific complaints. Mild diffuse aches. Opiate withdrawal symptoms well-controlled Patient requests: No specific Medications and Allergies Medications Current Medications Sig/Darling Start time Last Medication Dose Route Stop Time Status Admin Methadone HCl 20 MG Q8H 12/20 1330 AC 12/21 PO 1249 Piperacillin Sod/ 4.5 GM Q6HR 12/19 1200 AC 12/21 Tazobactam Sod IV 1249 Sodium Chloride 100 ML Influenza Virus 0.5 ML 0900 12/19 0900 AC Vaccine IM Pantoprazole Sodium 40 MG DAILY@0600 12/19 0600 AC 12/21 IV 0509 Norepinephrine 4 MG ASDIRECTED PRN 12/19 0315 AC Bitartrate IV Dextrose/Water 250 ML Albuterol Sulfate 2.5 MG RTQ3H PRN 12/19 001 AC IN Docusate Sodium 250 MG BID PRN 12/19 0015 AC PO Hydromorphone HCl 1 MG Q6H PRN 12/19 0015 AC 12/20 IV 1050 Lorazepam 0.5 MG Q6H PRN 12/19 0015 AC IV Naloxone HCl 0.4 MG PRN PRN 12/19 0015 AC IV Ondansetron HCl 4 MG Q6H PRN 12/19 0015 AC IV Allergies Coded Allergies: Sulfa Antibiotics (Severe, 11/17/16) Physical Exam Vital Signs / I&Os Vital Signs Date Time Temp Pulse Resp B/P Pulse O2 O2 Flow FiO2 Ox Delivery Rate 12/21 1425 97.3 57 18 116/64 93 Room Air 12/21 1019 97.9 68 18 110/72 95 Room Air 12/21 0635 97.5 68 18 113/71 96 Room Air 12/21 0218 98.4 60 16 119/72 96 Room Air 12/20 2212 98.1 73 17 114/68 95 Room Air I&O 12/21 0000 / 1600 12/20 0800 Intake Total 828 2210 2511 Output Total 2200 1350 Balance 577 92 9850 General Appearance Alert, Oriented X3, Cooperative, No acute distress Lungs Clear to auscultation, Normal air movement Cardiovascular Regular rate and rhythm, Normal S1 and S2 Abdomen Normal bowel sounds, Soft, No tenderness Extremities No cyanosis, No clubbing, hand/foot edema improved Neurological Cranial nerves intact, No lateralizing signs Psych/Mental Status Mental status normal, Mood normal LAB Results Laboratory Tests 12/21 0720 Chemistry Plasma Sodium (136 - 145 mmol/L) 139 Plasma Potassium (3.5 - 5.1 mmol/L) 3.8 Plasma Chloride (98 - 107 mmol/L) 104 CO2 (Enzymatic) (21 - 32 mmol/L) 26 BUN (7 - 18 mg/dL) 13 Creatinine (0.6 - 1.3 mg/dL) 1.0 Est GFR ( Amer) (mL/min) >60 Est GFR (Non-Af Amer) (mL/min) >60 Glucose (70 - 110 mg/dL) 104 Plasma Calcium (8.5 - 10.1 mg/dL) 7.6 Hematology WBC (4.5 - 11.5 K/uL) 10.9 RBC (4.50 - 5.90 M/uL) 3.77 Hgb (13.5 - 17.5 gm/dL) 10.9 Hct (41.0 - 53.0 %) 33.4 MCV (80 - 100 fL) 89 MCH (26 - 34 pg) 29 RDW (11.6 - 14.8 %) 15.9 Neut % (Auto) (50 - 75 %) 59 Lymph % (Auto) (25 - 40 %) 26 [place] % (Auto) (3 - 14 %) 4 Eos % (Auto) (0 - 4 %) 2 Baso % (Auto) (0 - 2 %) 0 Band Neutrophils % (0 - 8 %) 9 Metamyelocytes % (0 - 1 %) 0 Myelocytes (0 - 1 %) 0 Other Cell Type 0 Plt Count, EDTA (150 - 400 K/uL) 265 Anisocytosis (manual) 1+ PUBS MCHC (31 - 37 g/dL) 33 Serology Hep Bs Antigen Pending Hep Bs Antibody Pending Hep B Core Total Ab Pending Hep B Core IgM Ab Pending Hepatitis C Antibody Pending Assessment and Plan Problem List 1. Pneumonia Plan -Improved -DC vancomycin -Switch to oral antimicrobials in a.m. if stable -Possible discharge to home in a.m. 2. Sepsis Plan -Resolved -Blood cultures negative -DC vancomycin -Switch to oral antimicrobials in a.m. 3. Hepatitis C infection Plan -Awaiting hepatitis C workup -Recheck liver function studies in a.m. 4. Illicit drug use Status Chronic Onset Date Unknown Plan -Patient on opiate replacement therapy -Methadone 20 mg by mouth every 8 hours -Referral to methadone treatment program post hospitalization Current status: Fair, improved Anticipated discharge date: Anticipated discharge in a.m. Anticipated discharge placement: Home Patient care time: Time spent in chart review, patient interview, physical exam, CPOE, and care documentation: 25 minutes Visit to patient today: 1 Complexity of care: Moderate E&M Codes Rounding: Inpt-Moderate/[id number]
[2016-12-21 18:32] VITALS: BP 113/67
[2016-12-21 22:05] VITALS: BP 114/67
[2016-12-22 02:02] VITALS: BP 101/62
[2016-12-22 06:55] VITALS: BP 110/72
--- NOTE | 2016-12-22 08:34 | Progress Note ---
Subjective General Note Date: December 22, 2016 Admission Date: December 19, 2016 Hospital Day: 4 PCP: None Status: Inpatient Advanced Directive: FULL CODE Room: 301 Brief History: The patient is a 41-year-old white male with a significant past medical history of illicit drug use-L1, methamphetamine who presented to [facility] emergency department on the day of admission secondary to complaints of generalized weakness, nausea, vomiting, and temperature elevation. [facility] ER evaluation was consistent with pneumonia, sepsis, illicit drug use heroin/methamphetamine. Secondary to the above, the patient was admitted by Colt Meza M.D. for further evaluation and treatment. For other history present illness, past medical history, family history, social history, review of systems, and admission physical examination please see the patient's history and physical examination and ER visit note in the patient's medical record. Subjective: The patient states he is doing well. No specific complaints. Ready for discharge at this time Patient requests: None Medications and Allergies Medications Current Medications Sig/Darling Start time Last Medication Dose Route Stop Time Status Admin Methadone HCl 20 MG Q8H 12/20 1330 AC 12/22 PO 0518 Piperacillin Sod/ 4.5 GM Q6HR 12/19 1200 AC 12/22 Tazobactam Sod IV 0517 Sodium Chloride 100 ML Influenza Virus 0.5 ML 0900 12/19 0900 AC Vaccine IM Pantoprazole Sodium 40 MG DAILY@0600 12/19 0600 AC 12/22 IV 0517 Norepinephrine 4 MG ASDIRECTED PRN 12/19 0315 AC Bitartrate IV Dextrose/Water 250 ML Albuterol Sulfate 2.5 MG RTQ3H PRN 12/19 0015 AC IN Docusate Sodium 250 MG BID PRN 12/19 0015 AC PO Hydromorphone HCl 1 MG Q6H PRN 12/19 0015 AC 12/20 IV 1050 Lorazepam 0.5 MG Q6H PRN 12/19 0015 AC IV Naloxone HCl 0.4 MG PRN PRN 12/19 0015 AC IV Ondansetron HCl 4 MG Q6H PRN 12/19 0015 AC IV Allergies Coded Allergies: Sulfa Antibiotics (Severe, 11/17/16) Physical Exam Vital Signs / I&Os Vital Signs Date Time Temp Pulse Resp B/P Pulse O2 O2 Flow FiO2 Ox Delivery Rate 12/22 0655 97.5 74 19 110/72 94 Room Air 12/22 0202 98.4 63 17 101/62 95 Room Air 12/21 2205 98.1 67 16 114/67 94 Room Air 12/21 1832 97.7 80 16 113/67 94 Room Air 12/21 1425 97.3 57 18 116/64 93 Room Air 12/21 1019 97.9 68 18 110/72 95 Room Air I&O 12/22 0000 / 1600 12/21 0800 Intake Total 720 1340 1160 Output Total 600 Balance 720 1340 560 General Appearance Alert, Oriented X3, Cooperative, No acute distress Lungs Clear to auscultation Cardiovascular Regular rate and rhythm, Normal S1 and S2 Extremities No cyanosis, No clubbing Neurological Cranial nerves intact, Strength 5/5 x4 ext's, No lateralizing signs Psych/Mental Status Mental status normal, Mood normal LAB Results Laboratory Tests 12/22 12/22 0515 0400 Chemistry Plasma Sodium (136 - 145 mmol/L) 140 Plasma Potassium (3.5 - 5.1 mmol/L) 3.9 Plasma Chloride (98 - 107 mmol/L) 103 CO2 (Enzymatic) (21 - 32 mmol/L) 32 BUN (7 - 18 mg/dL) 15 Creatinine (0.6 - 1.3 mg/dL) 1.0 Est GFR ( Amer) (mL/min) >60 Est GFR (Non-Af Amer) (mL/min) >60 Glucose (70 - 110 mg/dL) 120 Plasma Calcium (8.5 - 10.1 mg/dL) 8.6 Total Bilirubin (0.0 - 1.0 mg/dL) 0.3 AST (15 - 37 U/L) 51 ALT (12 - 78 U/L) 94 Alkaline Phosphatase (46 - 116 U/L) 100 Total Protein (6.4 - 8.2 g/dL) 6.9 Albumin (3.3 - 5.0 g/dL) 2.4 Hematology WBC (4.5 - 11.5 K/uL) 9.3 RBC (4.50 - 5.90 M/uL) 4.24 Hgb (13.5 - 17.5 gm/dL) 12.2 Hct (41.0 - 53.0 %) 37.6 MCV (80 - 100 fL) 89 MCH (26 - 34 pg) 29 RDW (11.6 - 14.8 %) 15.8 Neut % (Auto) (50 - 75 %) 45 Lymph % (Auto) (25 - 40 %) 44 Cameron % (Auto) (3 - 14 %) 2 Eos % (Auto) (0 - 4 %) 5 Baso % (Auto) (0 - 2 %) 1 Band Neutrophils % (0 - 8 %) 3 Metamyelocytes % (0 - 1 %) 0 Myelocytes (0 - 1 %) 0 Other Cell Type . Plt Count, EDTA (150 - 400 K/uL) 293 Anisocytosis (manual) 1+ PUBS MCHC (31 - 37 g/dL) 32 Assessment and Plan Problem List 1. Pneumonia Plan -Much improved -Switch to oral medications -Discharge today -Outpatient follow-up with PCP next week 2. Sepsis Plan -Resolved -Blood cultures negative -Switch to oral medications today 3. Hepatitis C infection Plan -Patient with history of hepatitis C -We'll need treatment -We'll obtain viral load prior to discharge -Outpatient follow up with PCP for initiation of treatment 4. Illicit drug use Status Chronic Onset Date Unknown Plan -Patient with findings of illicit drug use-heroin/methamphetamine -Enrollment in methadone treatment program on Saturday, December 24, 2016 -Referral to [facility] methadone program. Current status: Fair, improved Anticipated discharge date: Today Anticipated discharge placement: Home Patient care time: Time spent in chart review, patient interview, physical exam, CPOE, and care documentation: Greater than 30 minutes Visit to patient today: 1 Complexity of care: Moderate For other recommendations regarding discharge diet, activity, followup, and discharge medications please see the patient's discharge instructions. Greater than 30 min. was spent in the patient's discharge preparation including discharge interview and physical examination, progress note, discharge instructions, and discharge summary E&M Codes Discharge: Inpt >30 min spent/[id number]
--- NOTE | 2016-12-22 08:36 | Discharge Summary ---
Discharge Summary Report Admit Date 12/18/16 Discharge Date 12/22/16 Admission Diagnosis 1. Pneumonia 2. Sepsis 3. Illicit drug use-methamphetamine/heroin 4. Hepatitis C Discharge Diagnosis 1. Pneumonia 2. Sepsis 3. Illicit drug use-methamphetamine/heroin 4. Hepatitis C Brief History The patient is a 41-year-old white male with a significant past medical history of illicit drug use-heroin, methamphetamine who presented to [facility] emergency department on the day of admission secondary to complaints of generalized weakness, nausea, vomiting, and temperature elevation. [facility] ER evaluation was consistent with pneumonia, sepsis, illicit drug use heroin/methamphetamine. Secondary to the above, the patient was admitted by Colt Meza M.D. for further evaluation and treatment. For other history present illness, past medical history, family history, social history, review of systems, and admission physical examination please see the patient's history and physical examination and ER visit note in the patient's medical record. Hospital Course The following problems and their management were noted during the patient's hospitalization: 1. Pneumonia The patient presented with findings of pneumonia. He underwent treatment with IV followed by oral antimicrobials. At the time of discharge he was afebrile with normalization of his temperature. No O2 requirements. Taking well orally. Up ambulating without problems. He was discharged home on Augmentin 875 mg by mouth twice a day. He will follow-up with his PCP next week. 2. Sepsis The patient presented with findings of sepsis. He was treated with IV fluid therapy and antimicrobials. He required no pressor agents. His symptoms rapidly improved.. Blood cultures were negative as above. At the time of discharge he had no ongoing findings of sepsis/infection. 3. Illicit drug use-methamphetamine/heroin The patient has a long-standing history of illicit drug use-methamphetamine/ heroin. I recommended and encouraged the patient to follow-up with [facility] methadone treatment program. He was distributed information and instructed to follow up on Saturday, December 24, 2016 for open enrollment. He is aware of the need for treatment and probable serious health risks if he does not cease use of illicit drugs. He received a 3 day supply of methadone at discharge. Discharge methadone dosage 20 mg by mouth 3 times a day. 4. Hepatitis C The patient has findings of hepatitis C. He was encouraged to follow up with his PCP next week. He should undergo hepatitis C viral load/genotype in preparation of treatment with his PCP. This was emphasized during his visit. He is aware of the health risk of not pursuing treatment for his hepatitis C infection. Lab/Imaging Laboratory Tests 12/22 12/22 0515 0400 Chemistry Plasma Sodium (136 - 145 mmol/L) 140 Plasma Potassium (3.5 - 5.1 mmol/L) 3.9 Plasma Chloride (98 - 107 mmol/L) 103 CO2 (Enzymatic) (21 - 32 mmol/L) 32 BUN (7 - 18 mg/dL) 15 Creatinine (0.6 - 1.3 mg/dL) 1.0 Est GFR ( Amer) (mL/min) >60 Est GFR (Non-Af Amer) (mL/min) >60 Glucose (70 - 110 mg/dL) 120 Plasma Calcium (8.5 - 10.1 mg/dL) 8.6 Total Bilirubin (0.0 - 1.0 mg/dL) 0.3 AST (15 - 37 U/L) 51 ALT (12 - 78 U/L) 94 Alkaline Phosphatase (46 - 116 U/L) 100 Total Protein (6.4 - 8.2 g/dL) 6.9 Albumin (3.3 - 5.0 g/dL) 2.4 Hematology WBC (4.5 - 11.5 K/uL) 9.3 RBC (4.50 - 5.90 M/uL) 4.24 Hgb (13.5 - 17.5 gm/dL) 12.2 Hct (41.0 - 53.0 %) 37.6 MCV (80 - 100 fL) 89 MCH (26 - 34 pg) 29 RDW (11.6 - 14.8 %) 15.8 Neut % (Auto) (50 - 75 %) 45 Lymph % (Auto) (25 - 40 %) 44 Morrison % (Auto) (3 - 14 %) 2 Eos % (Auto) (0 - 4 %) 5 Baso % (Auto) (0 - 2 %) 1 Band Neutrophils % (0 - 8 %) 3 Metamyelocytes % (0 - 1 %) 0 Myelocytes (0 - 1 %) 0 Other Cell Type . Plt Count, EDTA (150 - 400 K/uL) 293 Anisocytosis (manual) 1+ PUBS MCHC (31 - 37 g/dL) 32 Discharge Instructions/Meds For other recommendations regarding discharge diet, activity, followup, and discharge medications please see the patient's discharge instructions. Discharge condition: Fair, improved Greater than 30 min. was spent in the patient's discharge preparation including discharge interview and physical examination, progress note, discharge instructions, and discharge summary The patient was interviewed and examined on the day of discharge. E&M Codes Discharge: Inpt >30 min spent/[id number]
[2016-12-22 11:21] VITALS: BP 100/68
[2016-12-22] MEDS ORDERED: METHADONE HCL10 MG PO ×2 (12:34→12:35)
[2016-12-22] MEDS ORDERED: AUGMENTIN875 MG PO (12:34)
--- NOTE | 2016-12-22 12:38 | Provider's Discharge Care Plan ---
Problem, Goal, Plan Problem List 1. Pneumonia Goals: Improve disease control, Prevent disease progress Instructions: Follow up as directed, Take meds as directed 2. Hepatitis C infection Goals: Improve disease control, Prevent disease progress Instructions: Follow up as directed, Schedule follow up with [facility] [place] for evaluation and treatment of your hepatitis C 3. Illicit drug use Goals: Improve disease control, Improve function, Improved health/wellness, Prevent disease progress Instructions: Follow up as directed, Take meds as directed, Follow up at [facility] Methadone treatment program on 12/24/16 for enrollment in treatment program.
--- NOTE | 2016-12-22 12:38 | Provider's Discharge Care Plan ---
Problem, Goal, Plan Problem List 1. Pneumonia Goals: Improve disease control, Prevent disease progress Instructions: Follow up as directed, Take meds as directed 2. Hepatitis C infection Goals: Improve disease control, Prevent disease progress Instructions: Follow up as directed, Schedule follow up with [facility] [place] for evaluation and treatment of your hepatitis C 3. Illicit drug use Goals: Improve disease control, Improve function, Improved health/wellness, Prevent disease progress Instructions: Follow up as directed, Take meds as directed, Follow up at [facility] Methadone treatment program on 12/24/16 for enrollment in treatment program.
[2016-12-22 14:11] VITALS: BP 100/59
== END 2016-12-22 15:00 | disposition home or self-care (01) | DRG 720 ==
LOC: ED SRH 19:05 → TRANS SRH 22:44 → CC SRH 22:44 → TRANS SRH 22:44 → CC SRH 22:44
PROVIDERS: ADMIT Emergency Medicine
PROC: 3E0234Z Introduction of Serum, Toxoid and Vaccine into Muscle, Percutaneous Approach (ICD-10-PCS; principal; 2016-12-19)
DX: A41.9 Sepsis, unspecified organism (principal); J18.9 Pneumonia, unspecified organism; R65.20 Severe sepsis without septic shock; F11.220 Opioid dependence with intoxication, uncomplicated; F15.920 Other stimulant use, unspecified with intoxication, uncomplicated; Z23 Encounter for immunization; B18.2 Chronic viral hepatitis C; F17.210 Nicotine dependence, cigarettes, uncomplicated; Z59.0 Homelessness

== ENCOUNTER 2017-01-17 12:57 | Emergency (ER) | payer OTHER ==
[~2017-01-17 12:57] MED LIST changes: +AUGMENTIN875 MG PO
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
--- NOTE | 2017-01-17 17:24 | ED ORDER SUMMARY ---
..... Patient: JUAN MCRAE OrderSheet [facility] VisitID: [id number] [place] [address] 41y, M Registration Date/Time: 01/17/2017 ORDER SHEET Weight: 63.5 kg (stated) Allergies: Sulfites GENERAL ORDERS: Brick Paver (Continuous) (OD) (13:17 01/17/2017 Nazario Vaughn) (13:27 RKary) CBC w Diff Urgent (13:17 01/17/2017 Nazario Vaughn) (Ack 13:28 Lois) (13:48 KKnebel R.N.) CMP Urgent (13:17 01/17/2017 Nazario Vaughn) (Ack 13:28 Lois) (13:48 KKnebel R.N.) UA-Culture if indicated Urgent (13:17 01/17/2017 Nazario Vaughn) (Ack 13:28 Lois) (14:39 KKnebel R.N.) Urine Drug Screen Urgent (13:17 01/17/2017 Nazario Vaughn) (Ack 13:28 Lois) (14:39 KKnebel R.N.) Pulse oximeter (13:17 01/17/2017 Nazario Vaughn) (13:27 RKaruga) MEDICATION ORDERS: IV FLUIDS: IV NS : initial bolus 1000 mL (1000 mL/hr), then none - for X1 (NOW) (13:16 01/17/2017 Nazario Vaughn) (13:48 KKnebel R.N.) IV NS : initial bolus 1000 mL (1000 mL/hr), then none - for X1 (NOW) (14:15 01/17/2017 Nazario Vaughn) (15:07 KKnebel R.N.) ORDER SHEET NOTES: [Electronically signed by Gail Puente R.N. (17:49 01/17/2017)] [Electronically signed by Heriberto Obrien Dr. (11:07 01/22/2017)] [Electronically locked/signed by Gail Puente R.N. (17:49 01/17/2017)]
--- NOTE | 2017-01-17 17:24 | ED ORDER SUMMARY ---
..... Patient: JUAN MCRAE OrderSheet [facility] VisitID: [id number] [place] [address] 41y, M Registration Date/Time: 01/17/2017 ORDER SHEET Weight: 63.5 kg (stated) Allergies: Sulfites GENERAL ORDERS: Clinical Esthetician (Continuous) (OD) (13:17 01/17/2017 Nazario Vaughn) (13:27 RKary) CBC w Diff Urgent (13:17 01/17/2017 Nazario Vaughn) (Ack 13:28 Lois) (13:48 KKnebel R.N.) CMP Urgent (13:17 01/17/2017 Nazario Vaughn) (Ack 13:28 Lois) (13:48 KKnebel R.N.) UA-Culture if indicated Urgent (13:17 01/17/2017 Nazario Vaughn) (Ack 13:28 Lois) (14:39 KKnebel R.N.) Urine Drug Screen Urgent (13:17 01/17/2017 Nazario Vaughn) (Ack 13:28 Lois) (14:39 KKnebel R.N.) Pulse oximeter (13:17 01/17/2017 Nazario Vaughn) (13:27 RKaruga) MEDICATION ORDERS: IV FLUIDS: IV NS : initial bolus 1000 mL (1000 mL/hr), then none - for X1 (NOW) (13:16 01/17/2017 Nazario Vaughn) (13:48 KKnebel R.N.) IV NS : initial bolus 1000 mL (1000 mL/hr), then none - for X1 (NOW) (14:15 01/17/2017 Nazario Vaughn) (15:07 KKnebel R.N.) ORDER SHEET NOTES: [Electronically signed by Gail Puente R.N. (17:49 01/17/2017)] [Electronically signed by Heriberto Obrien Dr. (11:07 01/22/2017)] [Electronically locked/signed by Gail Puente R.N. (17:49 01/17/2017)]
--- NOTE | 2017-01-17 17:24 | ED CLINICAL REPORT ---
Clinical Report - Physicians/Mid Levels [facility] [address] [place] [address] 01/17/2017 12:58 Patient: JUAN MCRAE Time Seen: 1311. Arrived- By ambulance. Historian- patient. HISTORY OF PRESENT ILLNESS Chief Complaint: DRUG OVERDOSE. This occurred today. No toxic symptoms present. No toxic symptoms present. Single drug taken- Heroin. Rescue was not likely for this event. He did not seek help. No situational problems or alcohol recently. The symptoms are described as severe. No suicidal thoughts, hallucinations or delusions. Not confused or paranoid. (The patient reports that he had injected himself with heroin. Patient reports the Next thing he remembers is being held by EMS. Patient reports he has had symptoms like this before in the past. Patient reports no suicidal ideation or homicidal ideation. Patient worsened hallucinations or delusions. Patient states that he does the heroin for chronic back pain. No acute changes to the back pain at this time. Patient states that he does not need evaluation for this.). Similar symptoms previously: Several times. Recent medical care: Not recently seen/assessed. REVIEW OF SYSTEMS No headache, chest pain, palpitations, abdominal pain or vomiting. No diarrhea, black stools, fever or difficulty breathing. All systems otherwise negative, except as recorded above. PAST HISTORY See nurses notes. Medications: None. Allergies: Sulfites. SOCIAL HISTORY Smoker- current status unknown. History of drug use. No alcohol use. No social support. No place to stay. ADDITIONAL NOTES The nursing notes have been reviewed. PHYSICAL EXAM Vital Signs: 01/17/2017 13:05 BP: 134/85. HR: 92. RR: 9. O2 saturation: 99%. Temp: 97.6 F. Pain level now: 9/10. Blood pressure normal. Oxygen saturation normal. Appearance: Alert. Oriented X3. No acute distress. (unkempt, disheveled, malodorous. Plight, cooperative, pleasant.). Eyes: Pupils equal, round and reactive to light. No nystagmus. Extraocular movements normal. ENT: TM's normal. Pharynx normal. (Generalized poor dentition.). Neck: Normal inspection. Neck supple. No meningeal signs. CVS: Normal heart rate and rhythm. Heart sounds normal. Pulses normal. Respiratory: No respiratory distress. Breath sounds normal. Abdomen: Soft and nontender. No organomegaly. Back: Normal inspection. Skin: Skin warm and dry. Normal skin color. No rash. Normal skin turgor. Extremities: Extremities exhibit normal ROM. No lower extremity edema. Neuro: Alert. Oriented X 3. Mood/affect normal. Speech normal. Cranial nerves normal (as tested). No cerebellar findings. No motor deficit. No sensory deficit. LABS, X-RAYS, AND EKG Laboratory Tests: UA-Culture if indicated: (CHARLES: 01/17/2017 14:30) ( [facility] [place] 15:01[place] Final results Test Result Flag Units (Reference) URINE COLOR YELLOW URINE APPEARANCE CLEAR URINE GLUCOSE NEGATIVE (NEGATIVE) URINE BILIRUBIN NEGATIVE (NEGATIVE) URINE KETONE NEGATIVE (NEGATIVE) URINE SPECIFIC GRAVITY 1.020 (1.010-1.030) URINE PH 7.0 (5.0-8.0) URINE PROTEIN NEGATIVE (NEGATIVE) URINE UROBILINOGEN 0.2 EU/dL (0.2-1.0) URINE NITRITE NEGATIVE (NEGATIVE) URINE BLOOD NEGATIVE (NEGATIVE) URINE LEUK ESTERASE NEGATIVE (NEGATIVE) URINE RBC 0-1 rbc/hpf (0-1) URINE WBC 0-1 wbc/hpf (0-1) URINE EPITHELIAL CELLS RARE EPI/hpf (0-5) URINE BACTERIA NONE SEEN (NONE SEEN) URINE COMMENT CULT NOT INDICATED 1+ AMORPHOUSURINE CULTURES ARE SET-UP BASED ON THE FOLLOWING CRITERIA:POSITIVE NITRITEPOSITIVE LEUKOCYTE ESTERASEGREATER THAN 10 WHITE BLOOD CELLSMODERATE (2+) OR GREATER BACTERIA CBC w Diff: (CHARLES: 01/17/2017 13:40) ( [facility] [place] 13:51[place] Final results Test Result Flag Units (Reference) WHITE BLOOD COUNT 8.5 K/uL (4.5-11.5) RED BLOOD COUNT 4.50 M/uL (4.50-5.90) HEMOGLOBIN 13.1 L gm/dL (13.5-17.5) HEMATOCRIT 38.7 L % (41.0-53.0) MEAN CELL VOLUME 86 fL (80-100) MEAN CORPUSCULAR HGB 29 pg (26-34) MEAN CORPUSCULAR HGB CONC 34 g/dL (31-37) RED CELL DISTRIBUTION WIDTH 15.1 H % (11.6-14.8) PLATELET COUNT 315 K/uL (150-400) NEUTROPHIL % 64.0 % (50-75) LYMPH % 23.2 L % (25-40) MONO % 8.8 % (3-14) EOSINOPHIL % 3.7 % (0-4) BASOPHIL % 0.3 % (0-2) Urine Drug Screen: (CHARLES: 01/17/2017 14:30) ( [facility] [place] 15:24) Final results Test Result Flag Units (Reference) AMPHETAMINE/METHAMPHETAMINE NEGATIVE (NEGATIVE) BARBITURATE NEGATIVE (NEGATIVE) BENZODIAZEPINE NEGATIVE (NEGATIVE) CANNABINOID NEGATIVE (NEGATIVE) COCAINE NEGATIVE (NEGATIVE) ECSTASY NEGATIVE (NEGATIVE) METHADONE NEGATIVE (NEGATIVE) OPIATE POSITIVE H (NEGATIVE) The urine drug screen is a qualitative screening test fordrug overdose and abuse. All screen results should beconsidered as presumptive.Drugs screened for are as follows:BenzodiazepinesCocaineAmphetamines/MetamphetaminesTHC (Tetrahydrocannabinol)OpiatesBarbituratesEcstasyMethadonePositive results are unconfirmed. For confirmation, notifythe lab for the specimen to be sent to the reference lab.All confirmations must be performed by a differentmethodology.The ingestion of natural herbal and plant productscontaining Ephedra/Ephedra metabolites can produce in urineone or more substances capable of cross reacting withamphetamine/methamphetamine immunoassays. These testsprovide a preliminary result only. A more specificalternative chemical method must be used to obtain aconfirmed analytical result. CMP: (CHARLES: 01/17/2017 13:40) ( [facility] 01/17/2017 15:22) Final results Test Result Flag Units (Reference) GLUCOSE 119 H mg/dL (70-110) BUN 16 mg/dL (7-18) CREATININE 0.7 mg/dL (0.6-1.3) Estimated GFR >60 mL/min Estimated GFR- >60 mL/min Note: Persistent reduction over 3 months in eGFR<60 mL/min/1.73 m2 defines CKD. Patients with eGFR values>=60 mL/min/1.73 m2 may also have CKD if evidence ofpersistent proteinuria. Additional information may be foundat www.kidney.org. SODIUM 140 mmol/L (136-145) POTASSIUM 4.3 mmol/L (3.5-5.1) CHLORIDE 107 mmol/L (98-107) CARBON DIOXIDE 27 mmol/L (21-32) CALCIUM 8.4 L mg/dL (8.5-10.1) TOTAL PROTEIN 8.0 g/dL (6.4-8.2) ALBUMIN 2.9 L g/dL (3.3-5.0) BILIRUBIN, TOTAL 0.4 mg/dL (0.0-1.0) ALKALINE PHOSPHATASE 90 U/L (46-116) AST (SGOT) 93 H U/L (15-37) ALT (SGPT) 88 H U/L (12-78) . PROGRESS AND PROCEDURES Course of Care: the patient is a pleasant 41-year-old male presenting for evaluation of altered mental status. The patient was found down at a local [employer]. patient admitted to using heroin prior to the onset of symptoms. Appears to be related to opioid overdose an accidental. Patient does not appear to be suicidal or homicidal at this time. Patient be monitored here in the emergency department as well as obtaining tox workup for overdose. Patient is agreeable to treatment plan. Narcan was given in the field. patient be monitored 4-6 hours while here. Patient was monitored here in the emergency department without any subsequent signs of opioid toxicity. Respirations are nonlabored and regular. No signs of bradypnea. Laboratory studies for tox workup are unremarkable except for slight elevation of patient's liver enzymes. Patient is any signs of cirrhosis or formula liver failure. Do not feel that this is related to Tylenol overdose or more sinister etiology. patient had recovered from the event uneventfully. No competitions. Patient is resting in bed and in no acute distress. Patient was offered clean socks and food and drink. Patient is tolerating by mouth well. Discussed with patient workup here in the emergency department including home care, follow-up, deondre, and return precautions. All questions have been answered. The patient expressed understanding of these instructions and was agreeable to them. Disposition: Discharged. Condition: good. CLINICAL IMPRESSION Accidental overdose (heroin). INSTRUCTIONS (Please try to come clean from drugs. They are damaging your body and you will from them if you do not quit. Help is available if you are willing.). Warnings: GENERAL WARNINGS: Return or contact your physician immediately if your condition worsens or changes unexpectedly, if not improving as expected, or if other problems arise. Specifically return if pain, vomiting, bleeding, breathing difficulty or fever. Your Current Medications: CONTINUE TAKING THE FOLLOWING MEDICATIONS: None*. Follow-up: Return to the emergency department as needed. Follow up with your doctor in three days. Reason for referral: recheck today's concerns. Summary of care provided to patient via paper. Screening today revealed the patient's blood pressure to be in the normal range. The patient should follow up with a primary care provider for blood pressure management. Understanding of the discharge instructions verbalized by patient. (Electronically signed by Heriberto Obrien Dr. 01/22/2017 11:07)
--- NOTE | 2017-01-22 11:08 | ED MAR SUMMARY ---
..... Medication Administration Record [facility] [address] [place] [address] Patient: JUAN MCRAE Visit ID: [id number] 41y, M Weight: 63.5 kg Height/Length: 72 in BMI: 19 ALLERGIES: Sulfites Start 13:45 01/17/2017 Gail Puente R.N., Stop 15:04 01/17/2017 Gail Puente R.N. Medication Administered: IV NS (SALINE), Dose: IV Fluids, Bolus: 1000 mL over 1 hour(s), Dispensed: 1000 mL bag, Site: #1 left leg. Medication Ordered: IV NS : initial bolus 1000 mL (1000 mL/hr), then none - for X1 (NOW). Start 15:07 01/17/2017 Gail Puente R.N. Medication Administered: IV NS (SALINE), Dose: IV Fluids over 2 hour(s), Rate: 1000 mL/hr, Bolus: 1000 mL over 2 hour(s), Dispensed: 1000 mL bag, Site: #2 right leg. Medication Ordered: IV NS : initial bolus 1000 mL (1000 mL/hr), then none - for X1 (NOW).
--- NOTE | 2017-01-22 11:08 | ED MED RECONCILIATION SUMMARY ---
Patient: JUAN MCRAE Medication Reconciliation Report [facility] VisitID: [id number] [address] [place] [address] 41y, M Registration Date/Time: 01/17/2017 Weight: 63.5 kg Height/Length: 72 in. BMI: 19.0 ALLERGIES: Sulfites The patient's Home Medications are listed below: NONE. The source(s) of the original Home Medication information: Not obtained. The following Medications were given to the patient in the Emergency Department: IV NS IV Fluids bolus 1000 mL over 1 hour(s), administered: 01/17/2017 1:45:00 PM IV NS IV Fluids bolus 1000 mL over 2 hour(s), then 1000 mL/hr, administered: 01/17/2017 3:07:00 PM The following Medications were prescribed to the patient: None.
--- NOTE | 2017-01-22 11:08 | ED MED RECONCILIATION SUMMARY ---
Patient: JUAN MCRAE Medication Reconciliation Report [facility] VisitID: [id number] [address] [place] [address] 41y, M Registration Date/Time: 01/17/2017 Weight: 63.5 kg Height/Length: 72 in. BMI: 19.0 ALLERGIES: Sulfites The patient's Home Medications are listed below: NONE. The source(s) of the original Home Medication information: Not obtained. The following Medications were given to the patient in the Emergency Department: IV NS IV Fluids bolus 1000 mL over 1 hour(s), administered: 01/17/2017 1:45:00 PM IV NS IV Fluids bolus 1000 mL over 2 hour(s), then 1000 mL/hr, administered: 01/17/2017 3:07:00 PM The following Medications were prescribed to the patient: None.
--- NOTE | 2017-01-22 11:08 | ED DISCHARGE INSTRUCTIONS ---
Patient: JUAN MCRAE General Instructions [facility] VisitID: [id number] [place] [address] 41y, M Registration Date/Time: 01/17/2017 Accidental overdose (heroin). INSTRUCTIONS (Please try to come clean from drugs. They are damaging your body and you will from them if you do not quit. Help is available if you are willing.). Warnings: GENERAL WARNINGS: Return or contact your physician immediately if your condition worsens or changes unexpectedly, if not improving as expected, or if other problems arise. Specifically return if pain, vomiting, bleeding, breathing difficulty or fever. Your Current Medications: CONTINUE TAKING THE FOLLOWING MEDICATIONS: None*. Follow-up: Return to the emergency department as needed. Follow up with your doctor in three days. Reason for referral: recheck today's concerns. Summary of care provided to patient via paper. Screening today revealed the patient's blood pressure to be in the normal range. The patient should follow up with a primary care provider for blood pressure management. Understanding of the discharge instructions verbalized by patient. ADDITIONAL INFORMATION Accidental Ingestion:Non-Toxic [Adult] You have been evaluated and treated for taking too much of a medicine or swallowing a chemical product. There is no sign of toxic effect at this time. It is very unlikely that any new symptoms will appear. As a safeguard, you must be alert for symptoms during the next 24 hours (see below). The exact symptom will depend on what was swallowed. Home Care: If LIQUID CHARCOAL was given to neutralize what was swallowed, it will cause a black color to the stools for 1-2 days. Usually, a laxative (sorbitol) is given with charcoal to speed the removal of any toxins from the intestinal tract. This may cause diarrhea for up to 24 hours. If no laxative was given with charcoal, you may get constipated. If this occurs, you may take an [id number] laxative such as Dulcolax pills or suppository. Prevention: Keep medicines, pesticides, and other household chemicals in their original containers. Clearly marta all harmful products if a different bottle is used. Follow Up with your doctor if all symptoms do not resolve within 24 hours or if constipation is not relieved by one or two doses of laxatives. Get Prompt Medical Attention if any of the following occur: Excess drowsiness or inability to be awakened Rapid heart beat, shakiness or seizure Fast breathing (over 25 breaths/minute) or slow breathing (less than 8 breaths/minute) Feeling shortness of breath Fever of 100.4F (38C) or higher, or as directed by your healthcare provider Vomiting or diarrhea for more than 24 hours Blood in stools or vomit (black or red color) Chest or abdominal pain Dizziness, weakness or fainting Opiate Overdose You have been treated for an overdose of opiates (such as a prescription pain medicine or heroin).Taking too much opiates is dangerous because they cause breathing to slow and possibly stop.If you stop breathing for more than 2-3 minutes, your heart will stop and you will . If your overdose was severe, you may have received an antidote called Narcan (naloxone). The antidote effect lasts for about 1-2 hours.If the opiate has not left your system by the time the Narcan wears off your symptoms may return (such as drowsiness and slow breathing). If you were addicted and physically dependent on opiates, then Narcan may cause withdrawal symptoms to appear immediately.These may consist of body aches, diarrhea, abdominal cramps, nausea, vomiting, runny nose, sneezing, sweating, yawning, restlessness, irritability, or trembling.These symptoms will go away as the Narcan wears off. Home Care Rest for the next [address] or operate any vehicle or dangerous equipment until all narcotic effects have worn off and you are no longer feeling sleepy or drowsy. If you were previously prescribed narcotic medicines for pain, do not take any more of this medicine for the next 6-8 hours, unless told otherwise. If narcotics or other drugs were swallowed, you may have been given liquid charcoal to neutralize those drugs.The charcoal may cause nausea and vomiting over the next few hours. It will also cause a black color to your stools for the next 1-2 days. Usually, a laxative is given with charcoal to speed the removal of any toxins from the intestinal tract. This may cause diarrhea for up to 24 hours. If no laxative was given, there may be a tendency toward constipation. If this occurs, you may take an qwkf-uhk-[id number] laxative such as Dulcolax pills or suppository, or Milk of Magnesia. Follow Up with your doctor if all symptoms do not resolve within 24 hours or if constipation is not relieved after two doses of laxatives.If your overdose was related to a drug addiction, seek drug counseling. Consider a drug treatment program to help you break your habit. Return Promptly or contact your doctor if any of the following occur: Excess drowsiness or inability to be awakened Slow breathing under 8 breaths per minute Shortness of breath or cough with colored sputum Fever over 100.4F (38.0C) oral Redness, swelling or tenderness at the heroin injection site Feeling that you might harm yourself or another You have been given the following additional information: Overdose, Accidental (Adult) Overdose, Opiate (Electronically signed by Heriberto Obrien Dr. 01/22/2017 11:07)
--- NOTE | 2017-01-22 11:08 | ED MAR SUMMARY ---
..... Medication Administration Record [facility] [address] [place] [address] Patient: JUAN MCRAE Visit ID: [id number] 41y, M Weight: 63.5 kg Height/Length: 72 in BMI: 19 ALLERGIES: Sulfites Start 13:45 01/17/2017 Gail Puente R.N., Stop 15:04 01/17/2017 Gail Puente R.N. Medication Administered: IV NS (SALINE), Dose: IV Fluids, Bolus: 1000 mL over 1 hour(s), Dispensed: 1000 mL bag, Site: #1 left leg. Medication Ordered: IV NS : initial bolus 1000 mL (1000 mL/hr), then none - for X1 (NOW). Start 15:07 01/17/2017 Gail Puente R.N. Medication Administered: IV NS (SALINE), Dose: IV Fluids over 2 hour(s), Rate: 1000 mL/hr, Bolus: 1000 mL over 2 hour(s), Dispensed: 1000 mL bag, Site: #2 right leg. Medication Ordered: IV NS : initial bolus 1000 mL (1000 mL/hr), then none - for X1 (NOW).
== END 2017-01-17 17:35 | disposition home or self-care (01) ==
LOC: ED SRH 12:57
DX: T40.1X1A Poisoning by heroin, accidental (unintentional), initial encounter (principal); Z88.2 Allergy status to sulfonamides
CPT/HCPCS: 90004; 90100; 92760; 92761; 92762; 92763; 92764; 92765; 92766; 92767; 95059

== ENCOUNTER 2017-04-29 19:27 | Emergency (ER) | payer OTHER ==
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
--- NOTE | 2017-04-29 19:36 | ED ORDER SUMMARY ---
..... Patient: JUAN MCRAE OrderSheet [facility] VisitID: [id number] [address] [place] [address] 41y, M Registration Date/Time: 04/29/2017 ORDER SHEET Weight: 63.5 kg (stated) Allergies: Sulfites GENERAL ORDERS: MEDICATION ORDERS: Bactrim DS PO (Tablet 800-160 mg) 1 tab (NOW) (19:35 04/29/2017 EKoroleva P.A.-C) (Cancelled: Other19:40 EKoroleva P.A.-C) Doxycycline Hyclate PO 100 mg (NOW) (19:41 04/29/2017 EKoroleva P.A.-C) (19:58 Simi Tuttle.) IV FLUIDS: ORDER SHEET NOTES: [Electronically signed by Maria Ines Santiago R.N. (19:58 04/29/2017)] [Electronically signed by Holly Patterson P.A.-C (20:53 04/29/2017)] [Electronically locked/signed by Maria Ines Santiago R.N. (19:58 04/29/2017)]
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
--- NOTE | 2017-04-29 19:36 | ED ORDER SUMMARY ---
..... Patient: JUAN MCRAE OrderSheet [facility] VisitID: [id number] [address] [place] [address] 41y, M Registration Date/Time: 04/29/2017 ORDER SHEET Weight: 63.5 kg (stated) Allergies: Sulfites GENERAL ORDERS: MEDICATION ORDERS: Bactrim DS PO (Tablet 800-160 mg) 1 tab (NOW) (19:35 04/29/2017 EKoroleva P.A.-C) (Cancelled: Other19:40 EKoroleva P.A.-C) Doxycycline Hyclate PO 100 mg (NOW) (19:41 04/29/2017 EKoroleva P.A.-C) (19:58 Simi Tuttle.) IV FLUIDS: ORDER SHEET NOTES: [Electronically signed by Maria Ines Santiago R.N. (19:58 04/29/2017)] [Electronically signed by Holly Patterson P.A.-C (20:53 04/29/2017)] [Electronically locked/signed by Maria Ines Santiago R.N. (19:58 04/29/2017)]
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
--- NOTE | 2017-04-29 20:53 | ED MAR SUMMARY ---
..... Medication Administration Record [facility] [address] [place] [place] [address] Patient: JUAN MCRAE Visit ID: [id number] 41y, M Weight: 63.5 kg Height/Length: 72 in BMI: 19 ALLERGIES: Sulfites Given 19:35 04/29/2017 Jack, Stacy Spann Medication Administered: DOXYCYCLINE HYCLATE [PO], Dose: 100 mg Tablets PO. Medication Ordered: Doxycycline Hyclate PO 100 mg (NOW).
--- NOTE | 2017-04-29 20:53 | ED MAR SUMMARY ---
..... Medication Administration Record [facility] [address] [place] [address] Patient: JUAN MCRAE Visit ID: [id number] 41y, M Weight: 63.5 kg Height/Length: 72 in BMI: 19 ALLERGIES: Sulfites Given 19:35 04/29/2017 Jack, Stacy Spann Medication Administered: DOXYCYCLINE HYCLATE [PO], Dose: 100 mg Tablets PO. Medication Ordered: Doxycycline Hyclate PO 100 mg (NOW).
--- NOTE | 2017-04-29 20:53 | ED MED RECONCILIATION SUMMARY ---
Patient: JUAN MCRAE Medication Reconciliation Report [facility] VisitID: [id number] [address] [place] [address] 41y, M Registration Date/Time: 04/29/2017 Weight: 63.5 kg Height/Length: 72 in. BMI: 19.0 ALLERGIES: Sulfites The patient's Home Medications are listed below: NONE. The source(s) of the original Home Medication information: Not obtained. The following Medications were given to the patient in the Emergency Department: DOXYCYCLINE HYCLATE [PO] PO 100 mg, administered: 04/29/2017 7:35:00 PM The following Medications were prescribed to the patient: Doxycycline 100 mg: Take 1 capsule orally every 12 hours for 10 days. No refill. -- Holly Patterson P.A.-C
--- NOTE | 2017-04-29 20:53 | ED DISCHARGE INSTRUCTIONS ---
Patient: JUAN MCRAE General Instructions [facility] VisitID: [id number] [place] [address] 41y, M Registration Date/Time: 04/29/2017 Cellulitis of the right upper arm, left upper arm and left lower leg. CLEARED FOR [facility]. INSTRUCTIONS Prescription Medications: Doxycycline 100 mg: Take 1 capsule orally every 12 hours for 10 days. No refill. Follow-up: Follow up with your doctor as needed. Understanding of the discharge instructions verbalized by patient. ADDITIONAL INFORMATION Cellulitis You have an infection of the skin known as cellulitis. This usually starts with a scrape, cut, insect bite, blister or other opening in the skin which becomes infected. This is a serious condition. It must be watched closely to be sure the infection is not spreading. With antibiotic treatment, the size of the red area will gradually shrink in size until the skin returns to normal. This will take 7-10 days. The red area should never increase in size once the antibiotic medicine has been started. Occasionally, an infection will be resistant to one antibiotic and another one will have to be used. Home Care: 1) Limit the use of the affected part, since excess movement can cause the infection to spread. 2) If the infection is on your leg, walk as little as possible during the first few days of the treatment. Keep your leg elevated while sitting. This will reduce swelling. 3) Take all of the antibiotic medicine exactly as directed until it is gone. Be careful not to miss any doses, especially during the first seven days. Follow Up with your doctor or this facility as directed. Check the infected area daily for the warning signs listed below. Get Prompt Medical Attention if any of the following occur: -- Spreading area of redness -- Increasing swelling or pain -- Appearance of pus or drainage -- Fever over 100.4 F (38.0 C) oral, or over 101.4 F (38.6 C) rectal, after two days on antibiotics Staph Infection (MRSA) "Staph" is the short name for the common bacteria called "staphylococcus aureus". Staph bacteria are often present on the skin without causing an infection. If it gets under the skin an infection occurs. This causes redness, tenderness, swelling and sometimes fluid drainage. MRSA stands for "Methicillin-Resistant Staph Aureus". Unlike a common staph infection, MRSA bacteria are resistant to the usual antibiotics and harder to treat. Also, MRSA is more toxic than common staph bacteria. It can spread quickly throughout the body and cause a life-threatening illness. MRSA is spread to others by direct physical contact with the bacteria. MRSA can also be transmitted from items contaminated by a person who has the bacteria, such as bandages, towels, bed sheets, or sports equipment. It is not spread through the air. Once you have a MRSA skin infection, you are at risk of having it recur in the future. If MRSA infection is suspected, the doctor may take a wound culture to confirm the diagnosis. Any abscess will be drained. One or sometimes two antibiotics that work against MRSA will be prescribed. Home Care: 1) Take any antibiotics prescribed exactly as directed until they are gone. 2) Follow the same washing procedures as outlined for Household Members below. 3) Keep draining wounds covered with clean, dry bandages. Change dressings as they become soiled. 4) You and those in contact with you should wash their hands frequently with soap and warm water or use an alcohol-based hand veterinary poultry inspector. Do this after each time you change the bandage or touch the wound. 5) Avoid sharing personal items such as towels, washcloths, razors, clothing, or uniforms. Wash soiled sheets, towels or clothes in hot water with laundry detergent. Use an automatic clothes dryer set on high to kill any remaining bacteria. 6) Remove any artificial nails and nail telugu. 7) If you use a gym, wipe down equipment before and after each use. Treatment Of Household Members If you have been diagnosed with possible MRSA infection, those living with you are at higher risk of carrying the bacteria on their skin or in their nose, even if there is no sign of infection. Bacteria must be removed from the skin of all household members (including you) at the same time, so that it is not passed back and forth. Advise them to remove the bacteria as follows: Wash your whole body (scalp to toes) daily for five days with Hibiclens (chlorhexidine). Scrub fingernails with a brush for one minute twice a day. If any skin infections are present (boils, abscess, infected cut) these must be treated by a doctor. Washing alone will not treat a MRSA infection. Clean counter tops and children's toys; do not share personal items such as toothbrush and razors. It is okay to share glasses, plates, utensils. If antibiotic ointment was prescribed use it as directed. Follow Up with your doctor or as advised by our staff. If a wound culture was taken, call as directed in two days to obtain the results. If the culture result is positive for MRSA, tell medical personnel in the future that you were treated for this type of infection. Get Prompt Medical Attention if any of the following occur: -- Increasing redness, swelling or pain -- Red streaks in the skin around the wound -- Weakness or dizziness -- New appearance of pus or drainage from the wound -- New fever over 100.4 F (38.0 C) You have been given the following additional information: Cellulitis MRSA Skin Infection, Suspected Or Confirmed (Electronically signed by Holly Patterson P.A.-C 04/29/2017 20:53)
--- NOTE | 2017-04-29 20:53 | ED MED RECONCILIATION SUMMARY ---
Patient: JUAN MCRAE Medication Reconciliation Report [facility] VisitID: [id number] [address] [place] [address] 41y, M Registration Date/Time: 04/29/2017 Weight: 63.5 kg Height/Length: 72 in. BMI: 19.0 ALLERGIES: Sulfites The patient's Home Medications are listed below: NONE. The source(s) of the original Home Medication information: Not obtained. The following Medications were given to the patient in the Emergency Department: DOXYCYCLINE HYCLATE [PO] PO 100 mg, administered: 04/29/2017 7:35:00 PM The following Medications were prescribed to the patient: Doxycycline 100 mg: Take 1 capsule orally every 12 hours for 10 days. No refill. -- Holly Patterson P.A.-C
== END 2017-04-29 19:40 ==
LOC: ED SRH 19:27
DX: L03.113 Cellulitis of right upper limb (principal); L03.114 Cellulitis of left upper limb; L03.116 Cellulitis of left lower limb; F17.210 Nicotine dependence, cigarettes, uncomplicated; Z88.2 Allergy status to sulfonamides